=== PATIENT | male | born 1965 | race Caucasian/White ===

== ENCOUNTER → 2017-10-23 09:18 | Outpatient (CLI) | payer OTHER, SELFPAY ==
[2017-10-23 11:43] LABS: Amphetamine/Metha Screen,Urine Negative ng/mL (<1000); Barbiturates Screen,Urine Negative ng/mL (<200); Benzodiazepines Screen,Urine Negative ng/mL (200); Cannabinoid Screen,Urine Negative ng/mL (<50); Cocaine Screen,Urine Negative ng/g (<300); Methadone Screen,Urine Negative ng/mL (<300); Opiate Screen,Urine Positive ng/mL (<300); Phencyclidine Screen,Urine Negative ng/mL (<25)
[2017-11-05 08:23] LABS: Codeine Negative (Cutoff=100); Hydrocodone Positive (.); Hydromorphone Negative (Cutoff=100); Morphine Negative (Cutoff=100)
[2017-11-07 10:34] LABS: Opiates Positive (.)
== END ==
PROVIDERS: PCP Family Medicine; Visit Provider Anesthesiology
DX: Z79.899 Other long term (current) drug therapy (principal)
CPT/HCPCS: 80305; 80361; G0480

== ENCOUNTER → 2017-11-13 11:58 | Outpatient (CLI) | payer OTHER, SELFPAY ==
[2017-11-13 14:22] LABS: Amphetamine/Metha Screen,Urine Negative ng/mL (<1000); Barbiturates Screen,Urine Negative ng/mL (<200); Benzodiazepines Screen,Urine Negative ng/mL (200); Cannabinoid Screen,Urine Negative ng/mL (<50); Cocaine Screen,Urine Negative ng/g (<300); Methadone Screen,Urine Negative ng/mL (<300); Opiate Screen,Urine Positive ng/mL (<300); Phencyclidine Screen,Urine Negative ng/mL (<25)
[2017-11-17 12:13] LABS: Codeine Negative (Cutoff=100); Hydrocodone Positive (.); Hydromorphone Negative (Cutoff=100); Morphine Negative (Cutoff=100)
[2017-11-18 06:27] LABS: Opiates Positive (.)
--- NOTE | 2017-11-18 09:57 | PC.PHONENOTE ---
called in Rx for Gabapentin 600mg TID with 2 refills to [facility] in [place] [phone]
== END ==
PROVIDERS: PCP Family Medicine; Visit Provider Anesthesiology
DX: Z79.899 Other long term (current) drug therapy (principal)
CPT/HCPCS: 80305; 80361; 80365; G0480

== ENCOUNTER → 2017-12-02 10:36 | Outpatient (POV) | payer OTHER, SELFPAY ==
[2017-12-02 10:45] VITALS: BP 137/93; PULSE 83; RESP 18; TEMP 36.4; O2SAT 96; BMI 31.8
--- NOTE | 2017-12-02 11:36 | HMH.PAINSOAP ---
[facility] Pain Management SOAP Note Subjective:: This patient is a pleasant 52-year-old white male who we have been treating in our clinic for quite some time for chronic pain secondary to degenerative disc disease of the cervical spine, multi-level disc bulge cervical spine, cervical radiculopathy symptoms, lumbar back pain, lumbar disc bulge. Patient has tried injective therapy in the past with no long-term relief from it. Patient is also being medically managed at this time with [place] 5 mg 1 p.o. 3 times daily patient states the medication does decrease his pain however it is not as effective as it used to be. She denies any side effects the medication patient has been seen by surgeons in the past but there is been no recommended surgery. Patient has also tried anti-inflammatory therapy, physical therapy, bracing therapy, TENS unit. Patient would like to discuss more long-term options for pain control. Patient rates his pain a 7 out of 10 today. He states that most of his pain is in his neck and radiates down his right arm. He has numbness and tingling in that right arm all the way to his fingers. Patient states he had a dislocated rib 7-8 years ago and this is caused thoracic back pain at times. ROS General: no recent weight change, no fever, no sleep disturbances Respiratory: no cough, no shortness of air, no recurring pulmonary infections Cardiovascular/Peripheral Vascular: No chest pain, No palpitations, no edema, no shortness of breath. Gastrointestinal: no incontinence, normal bowel movements reported Genitourinary: no incontinence Musculoskeletal: Back pain, neck pain Psychiatric: normal mood/ affect, Neurological: [denies weakness in extremities], [denies balance issues] Objective:: Physical Exam General: Alert and oriented x3, no acute distress, pleasant and cooperative, [on room air] Lungs: Resps E/U, Symmetrical chest expansion, Eyes: PERRL Musculoskeletal: Flexion and extension of lumbar and cervical spine somewhat guarded secondary to pain, deep tendon reflexes normal, strength in upper and lower extremities [5/5], no gait noted Neurological: speech clear, 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 Patient is both interested in intrathecal pain pump or a neurostimulator. I will do even may be effective for his pain control. Patient is young and had increase of potential systemic side effects if we continually increase his opioids. Patient understands this and does not want to continually increase medications. Patient would like to be off all narcotic pain medication. Patient would like to become more functional and return to work potentially. We will refill the patient's pain medication [place] 5 mg 1 p.o. 3 times daily and also: Meloxicam 7.5 mg 1 p.o. daily. patient's Sierra #[id number] reviewed and appropriate patient's UDS has been appropriate in the past. We will give this patient 1 month prescriptions and we will follow-up in 1 month to discuss moving forward with a neuromodulation therapy. Dr. Glover has reviewed his chart and agrees with this plan. I encouraged the patient to write down all of his thoughts and questions and bring them to this appointment. Patient has been prescribed a controlled substance after being counseled on the medication, medication safety, and possible side effects. SIERRA report has been obtained and reviewed prior to prescription and found to be appropriate. Opioid contract was reviewed and signed by the patient, and that they have agreed to all of the terms set forth by our compliance program. This note was dictated using voice-recognition software and may contain errors or omissions
--- NOTE | 2017-12-02 11:46 | P.CONS_ITS ---
[facility] Pain Management SOAP Note Subjective:: This patient is a pleasant 52-year-old white male who we have been treating in our clinic for quite some time for chronic pain secondary to degenerative disc disease of the cervical spine, multi-level disc bulge cervical spine, cervical radiculopathy symptoms, lumbar back pain, lumbar disc bulge. Patient has tried injective therapy in the past with no long-term relief from it. Patient is also being medically managed at this time with [place] 5 mg 1 p.o. 3 times daily patient states the medication does decrease his pain however it is not as effective as it used to be. She denies any side effects the medication patient has been seen by surgeons in the past but there is been no recommended surgery. Patient has also tried anti-inflammatory therapy, physical therapy, bracing therapy, TENS unit. Patient would like to discuss more long-term options for pain control. Patient rates his pain a 7 out of 10 today. He states that most of his pain is in his neck and radiates down his right arm. He has numbness and tingling in that right arm all the way to his fingers. Patient states he had a dislocated rib 7-8 years ago and this is caused thoracic back pain at times. ROS General: no recent weight change, no fever, no sleep disturbances Respiratory: no cough, no shortness of air, no recurring pulmonary infections Cardiovascular/Peripheral Vascular: No chest pain, No palpitations, no edema, no shortness of breath. Gastrointestinal: no incontinence, normal bowel movements reported Genitourinary: no incontinence Musculoskeletal: Back pain, neck pain Psychiatric: normal mood/ affect, Neurological: [denies weakness in extremities], [denies balance issues] Objective:: Physical Exam General: Alert and oriented x3, no acute distress, pleasant and cooperative, [ on room air] Lungs: Resps E/U, Symmetrical chest expansion, Eyes: PERRL Musculoskeletal: Flexion and extension of lumbar and cervical spine somewhat guarded secondary to pain, deep tendon reflexes normal, strength in upper and lower extremities [5/5], no gait noted Neurological: speech clear, 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 Patient is both interested in intrathecal pain pump or a neurostimulator. I will do even may be effective for his pain control. Patient is young and had increase of potential systemic side effects if we continually increase his opioids. Patient understands this and does not want to continually increase medications. Patient would like to be off all narcotic pain medication. Patient would like to become more functional and return to work potentially. We will refill the patient's pain medication [place] 5 mg 1 p.o. 3 times daily and also: Meloxicam 7.5 mg 1 p.o. daily. patient's Sierra # [id number] reviewed and appropriate patient's UDS has been appropriate in the past. We will give this patient 1 month prescriptions and we will follow-up in 1 month to discuss moving forward with a neuromodulation therapy. Dr. Glover has reviewed his chart and agrees with this plan. I encouraged the patient to write down all of his thoughts and questions and bring them to this appointment. Patient has been prescribed a controlled substance after being counseled on the medication, medication safety, and possible side effects. [facility]ERRA report has been obtained and reviewed prior to prescription and found to be appropriate.
--- NOTE | 2017-12-03 08:37 | PC.PHONENOTE ---
12/02/17-called in Rx for Meloxicam 7.5mg Daily with 2 refills to pt pharmacy
--- NOTE | 2017-12-10 13:53 | PC.PHONENOTE ---
authorized refill on Gabapentin with 2 additional refills to [facility] pharmacy in [place]
== END ==
PROVIDERS: Family Provider Family Medicine; PCP Family Medicine; Visit Provider Clinical Nurse Specialist Family Health
DX: M54.12 Radiculopathy, cervical region (principal)
CPT/HCPCS: 99212

== ENCOUNTER → 2017-12-22 10:26 | Outpatient (POV) | payer OTHER, SELFPAY ==
[2017-12-22 10:37] VITALS: BP 142/102; PULSE 52; RESP 20; O2SAT 97; BMI 31.8
--- NOTE | 2017-12-22 16:37 | HMH.PAINSOAP ---
[facility] Pain Management SOAP Note Subjective:: This patient is a pleasant 52-year-old white male who we have been treating for neck pain, low back pain and cervical lumbar radicular symptoms. He is currently on [place] 5 mg 3 times a day. He is not a candidate for any further surgery. He is failed all previous conservative therapy including physical therapy, chiropractic therapy, injections and oral medications. His pain varies from neck to low back depending on activity and time a day. Patient was given information on intrathecal therapy and spinal cord stimulation. Given that he has neck pain and low back pain I believe he would be a good candidate for intrathecal therapy. He is also on very low-dose narcotics. I have talked to him about the risk and benefits of intrathecal therapy. I have answered all questions. We will schedule for neuropsychological evaluation. I believe he would be a good candidate for intrathecal pump trial. Objective:: Alert and oriented ?3 in no acute distress. Patient has a antalgic gait. Motor strength of the upper and lower extremities is 5/5. There is no gross sensory deficit. Assessment:: Degenerative disc disease of the cervical spine with cervical radiculopathy symptoms. Degenerative disc disease of lumbar spine with lumbar radiculopathy symptoms. Plan:: We will seek approval and plan on intrathecal pump trial. We will plan on neuropsychological evaluation. I have talked to the patient about weaning off of his Str[place] and being completely off 48 hours prior to trial. He is not on any blood thinners. We will plan on intrathecal pump trial with catheter placement at the T4-T5 level to cover neck pain and low back pain.
== END ==
PROVIDERS: Family Provider Family Medicine; PCP Family Medicine; Visit Provider Anesthesiology
DX: M54.12 Radiculopathy, cervical region (principal); M54.16 Radiculopathy, lumbar region
CPT/HCPCS: 99212

== ENCOUNTER → 2018-02-09 09:28 | Outpatient (POV) | payer OTHER, SELFPAY ==
[2018-02-09 09:39] VITALS: BP 126/87; PULSE 71; RESP 18; TEMP 36.7; O2SAT 99; BMI 32.5
--- NOTE | 2018-02-09 10:09 | HMH.PAINSOAP ---
[facility] Pain Management SOAP Note Subjective:: This patient is a pleasant 52-year-old white male who presents today for follow-up after insurance denial intrathecal pain pump trial. Patient is currently on [place] 5 mg 1 p.o. 3 times daily. Patient is not a candidate for any further surgery. Patient's tried and failed previous conservative therapies including physical therapy, chiropractic therapy, injections and oral medications. Patient has low back pain along with neck pain at times. Patient is a lot less functional due to his pain. Patient has been educated on the risk and benefits of intrathecal therapy. Patient would like to proceed forward with intrathecal pain pump trial. ROS General: no recent weight change, no fever, no sleep disturbances Respiratory: no cough, no shortness of air, no recurring pulmonary infections Cardiovascular/Peripheral Vascular: No chest pain, No palpitations, no edema, no shortness of breath. Gastrointestinal: no incontinence, normal bowel movements reported Genitourinary: no incontinence Musculoskeletal: Pain, neck pain, bilateral leg pain Psychiatric: normal mood/ affect, [denies depression], [denies anxiety] Neurological: [denies weakness in extremities], [denies balance issues] Objective:: Physical Exam General: Alert and oriented x3, no acute distress, pleasant and cooperative, [on room air] Lungs: Resps E/U, Symmetrical chest expansion, Eyes: PERRL Musculoskeletal: Flexion and extension of lumbar spine somewhat guarded secondary to pain, deep tendon reflexes normal, strength in upper and lower extremities [5/5], slightly antalgic gait noted, positive straight leg test bilaterally at 30? Neurological: speech clear, spanish interpreter equal, no gross sensory deficits Assessment:: Degenerative disc disease of the cervical spine with cervical radiculopathy symptoms, degenerative disc disease of the lumbar spine with lumbar radiculopathy symptoms Plan:: We will plan a intrathecal pain pump trial and eventually and implantation of an intrathecal morphine pump. Patient is a good candidate for this. We will send him for for a psychological evaluation. Patient will have to wean off his narcotics completely prior to his trial. Patient is not on any blood thinners. Intrathecal pain pump trial will include placement of the catheter at the T4-T5 level for his neck pain and low back pain. Our goal will be to have him off oral narcotics permanently after placement of pump. We will refill the patient's [place] 5 mg 1 p.o. 3 times daily and gabapentin 600 mg 1 p.o. 3 times daily. We will give him 2 months worth of prescriptions today. Patient's SIERRA #[id number] reviewed and appropriate. Dr. Glover has reviewed this chart and agrees with this plan of care. Patient has been prescribed a controlled substance after being counseled on the medication, medication safety, and possible side effects. SIERRA report has been obtained and reviewed prior to prescription and found to be appropriate. Opioid contract was reviewed and signed by the patient, and that they have agreed to all of the terms set forth by our compliance program. This note was dictated using voice recognition software and may contain errors or omissions
--- NOTE | 2018-02-09 10:13 | P.CONS_ITS ---
[facility] Pain Management SOAP Note Subjective:: This patient is a pleasant 52-year-old white male who presents today for follow- up after insurance denial intrathecal pain pump trial. Patient is currently on [place] 5 mg 1 p.o. 3 times daily. Patient is not a candidate for any further surgery. Patient's tried and failed previous conservative therapies including physical therapy, chiropractic therapy, injections and oral medications. Patient has low back pain along with neck pain at times. Patient is a lot less functional due to his pain. Patient has been educated on the risk and benefits of intrathecal therapy. Patient would like to proceed forward with intrathecal pain pump trial. ROS General: no recent weight change, no fever, no sleep disturbances Respiratory: no cough, no shortness of air, no recurring pulmonary infections Cardiovascular/Peripheral Vascular: No chest pain, No palpitations, no edema, no shortness of breath. Gastrointestinal: no incontinence, normal bowel movements reported Genitourinary: no incontinence Musculoskeletal: Pain, neck pain, bilateral leg pain Psychiatric: normal mood/ affect, [denies depression], [denies anxiety] Neurological: [denies weakness in extremities], [denies balance issues] Objective:: Physical Exam General: Alert and oriented x3, no acute distress, pleasant and cooperative, [ on room air] Lungs: Resps E/U, Symmetrical chest expansion, Eyes: PERRL Musculoskeletal: Flexion and extension of lumbar spine somewhat guarded secondary to pain, deep tendon reflexes normal, strength in upper and lower extremities [5/5], slightly antalgic gait noted, positive straight leg test bilaterally at 30? 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 Patient is a good candidate for this. We will send him for for a psychological evaluation. Patient will have to wean off his narcotics completely prior to his trial. Patient is not on any blood thinners. Intrathecal pain pump trial will include placement of the catheter at the T4- T5 level for his neck pain and low back pain. Our goal will be to have him off oral narcotics permanently after placement of pump. We will refill the patient' s [place] 5 mg 1 p.o. 3 times daily and gabapentin 600 mg 1 p.o. 3 times daily. We will give him 2 months worth of prescriptions today. Patient's SIERRA # [id number] reviewed and appropriate. Dr. Glover has reviewed this chart and agrees with this plan of care. Patient has been prescribed a controlled substance after being counseled on the medication, medication safety, and possible side effects. SIERRA report has been obtained and reviewed prior to prescription and found to be appropriate. Opioid contract was reviewed and signed by the patient, and that they have agreed to all of the terms set forth by our compliance program. This note was dictated using voice recognition software and may contain errors or omissions
== END ==
PROVIDERS: Family Provider Family Medicine; PCP Family Medicine; Visit Provider Clinical Nurse Specialist Family Health
DX: M54.12 Radiculopathy, cervical region (principal); M54.16 Radiculopathy, lumbar region
CPT/HCPCS: 99212

== ENCOUNTER → 2018-02-25 09:39 | Outpatient (POV) | payer OTHER, SELFPAY ==
[2018-02-25 13:22] VITALS: BP 123/85; PULSE 73; RESP 18; TEMP 36.7; O2SAT 97; BMI 31.6
--- NOTE | 2018-02-25 15:03 | P.CONS_ITS ---
Assessment and Plan - Assessment and plan all Dx Assessment and Plan for all problems:: Impression-degenerative disc disease of the cervical and lumbar spine with radiculopathy Plan -intrathecal pain pump trial on 03/13/2018. Placement of a permanent system should this be successful HPI - Data of Consult Patient: new to practice Consult date: 02/25/18 Requesting Physician: Giovany Garcia MD Primary Care Provider: Adelia Guaman [facility] Provider: Adelia Guaman - Consult Narrative Reason for consult: Degenerative disc disease of the cervical and lumbar spine with radiculopat History of present illness: Mr. Carter is a 52 year old male with chronic back pain. Patient is not a candidate for surgical intervention. He has tried multiple conservative measures without significant success. Now presents for consideration of an intrathecal pain pump system for help in management of his cervical lumbar disc disease. CC: Giovany Garcia MD [facility] History Medical History: Denies:: Diabetes Mellitus Type 1, Diabetes Mellitus Type 2 Comment: History of kidney stones, cervical and lumbar disc days Other Surgeries: Yes: Other (knee surgery, unknown type) Amputation: No Fractures: No Comment: Knee surgery 1994 - *Social History Alcohol Intake: never Occupational Status: disabled - Psychiatric History Expresses thoughts of harming self/others: None Suicide Plan Description: No Plan Meds Allergies Allergy/AdvReac Type Severity Reaction Status Date / Time No Known Allergies Allergy Unverified 09/23/17 14:07 Objective Vital signs: Temp Pulse Resp BP Pulse Ox 98.0 F 73 18 123/85 97 02/25/18 13:22 02/25/18 13:22 02/25/18 13:22 02/25/18 13:22 02/25/18 13:22 Comments: L healthy appearing white male in no distress - Routine Chest/Breast/Axilla Exam Comments: Clear breath sounds - *Routine Cardiovascular Exam Present: RRR - *Routine Abdominal Exam Comments: Soft and nontender
== END ==
PROVIDERS: Family Provider Family Medicine; PCP Family Medicine; Visit Provider Surgery
DX: M54.12 Radiculopathy, cervical region (principal); M54.16 Radiculopathy, lumbar region
CPT/HCPCS: 99212

== ENCOUNTER → 2018-03-03 11:10 | Outpatient (CLI) | payer OTHER, SELFPAY ==
[2018-03-03 11:34] LABS: Basophils % 0.7 % (0.1-2.0); Eosinophils # 0.1 K/mm3 (0.0-0.4); Eosinophils % 1.4 % (0.1-12.0); Hematocrit 41.6 % (42.0-52.0); Hemoglobin 12.6 g/dL (14.1-18.0); Lymphocytes # 1.8 K/mm3 (0.7-4.5); Lymphocytes % 38.3 K/mm3 (10-50); Mean Corpuscular HGB Conc 30.3 g/dL (31.8-35.4); Mean Corpuscular Hemoglobin 25.2 pg (27.0-31.2); Mean Corpuscular Volume 83.2 fl (80-94); Mean Platelet Volume 6.9 fl (7.4-10.4); Monocytes # 0.4 K/mm3 (0.1-1.0); Monocytes % 8.6 % (1.7-9.3); Neutrophils # 2.4 K/mm3 (1.8-7.8); Platelet Count 283 K/mm3 (142-424); Red Cell Distribution Width 15.7 % (11.5-17.5); White Blood Count 4.7 K/mm3 (4.8-10.8)
[2018-03-03 12:36] LABS: Anion Gap 10.7 mEq/L (5-15); Blood Urea Nitrogen 15 mg/dL (7-18); Carbon Dioxide 30 mmol/L (21.0-32.0); Chloride 106 mmol/L (98-107); Creatinine,Serum 1.08 mg/dL (0.70-1.30); Estimated Glomerular Filt Rate 71 ml/min (>60); GFR (African American) 86 ML/MIN (>60); Glucose 105 mg/dL (74-106); Potassium 4.7 mmoL/L (3.5-5.1); Sodium 142 mmol/L (136-145)
== END ==
PROVIDERS: Visit Provider Anesthesiology
DX: Z01.818 Encounter for other preprocedural examination (principal)
CPT/HCPCS: 36415; 80048; 85025

== ENCOUNTER → 2018-03-16 10:27 | Outpatient (POV) | payer OTHER, SELFPAY ==
[2018-03-16 10:58] VITALS: BP 140/87; PULSE 73; RESP 18; O2SAT 98; BMI 32.5
--- NOTE | 2018-03-16 11:12 | HMH.PAINSOAP ---
[facility] Pain Management SOAP Note Subjective:: Patient is a pleasant 52-year-old white male who presents today after intrathecal pain pump trial. Patient received 90% relief of his pain symptoms during the trial. Patient did have some urinary retention however he also had kidney stones prior to the trial. This is all resolved. Patient states he had pain relief for 2 days after the trial and did not need to take any pain medication. Patient is currently on [place] 5 mg 1 p.o. 3 times daily. Patient is due gabapentin and meloxicam refills. We will call this in for him. We will schedule him for his intrathecal pain pump implantation given the efficacy and increase functionality range of motion during the trial. ROS General: no recent weight change, no fever, no sleep disturbances Respiratory: no cough, no shortness of air, no recurring pulmonary infections Cardiovascular/Peripheral Vascular: No chest pain, No palpitations, no edema, no shortness of breath. Gastrointestinal: no incontinence, normal bowel movements reported Genitourinary: no incontinence Musculoskeletal: Back pain, leg pain Psychiatric: normal mood/ affect Neurological: [denies weakness in extremities], [denies balance issues] Objective:: Physical Exam General: Alert and oriented x3, no acute distress, pleasant and cooperative, [on room air] Lungs: Resps E/U, Symmetrical chest expansion, Eyes: PERRL Musculoskeletal: Flexion and extension of lumbar spine somewhat guarded secondary to pain, deep tendon reflexes normal, strength in upper and lower extremities [5/5], normal gait noted Neurological: speech clear, small order cutter equal, no gross sensory deficits Assessment:: Degenerative disc disease of the cervical spine and lumbar spine with radiculopathy symptoms Plan:: patient has been seen by we will plan on permanent placement of intrathecal pain pump with intrathecal morphine 1 mg/mL and we will start him at a lower dose of 0.5 mg due to urinary retention. We will start him at 0.25 mg per day, he may potentially benefit from periodic flow. This note was dictated using voice recognition software and may contain errors or omissions
--- NOTE | 2018-03-16 11:17 | P.CONS_ITS ---
[facility] Pain Management SOAP Note Subjective:: Patient is a pleasant 52-year-old white male who presents today after intrathecal pain pump trial. Patient received 90% relief of his pain symptoms during the trial. Patient did have some urinary retention however he also had kidney stones prior to the trial. This is all resolved. Patient states he had pain relief for 2 days after the trial and did not need to take any pain medication. Patient is currently on [place] 5 mg 1 p.o. 3 times daily. Patient is due gabapentin and meloxicam refills. We will call this in for him. We will schedule him for his intrathecal pain pump implantation given the efficacy and increase functionality range of motion during the trial. ROS General: no recent weight change, no fever, no sleep disturbances Respiratory: no cough, no shortness of air, no recurring pulmonary infections Cardiovascular/Peripheral Vascular: No chest pain, No palpitations, no edema, no shortness of breath. Gastrointestinal: no incontinence, normal bowel movements reported Genitourinary: no incontinence Musculoskeletal: Back pain, leg pain Psychiatric: normal mood/ affect Neurological: [denies weakness in extremities], [denies balance issues] Objective:: Physical Exam General: Alert and oriented x3, no acute distress, pleasant and cooperative, [ on room air] Lungs: Resps E/U, Symmetrical chest expansion, Eyes: PERRL Musculoskeletal: Flexion and extension of lumbar spine somewhat guarded secondary to pain, deep tendon reflexes normal, strength in upper and lower extremities [5/5], normal gait noted Neurological: speech clear, contracting support specialist equal, no gross sensory deficits Assessment:: Degenerative disc disease of the cervical spine and lumbar spine with radiculopathy symptoms Plan:: patient has been seen by we will plan on permanent placement of intrathecal pain pump with intrathecal morphine 1 mg/mL and we will start him at a lower dose of 0.5 mg due to urinary retention. We will start him at 0.25 mg per day, he may potentially benefit from periodic flow. This note was dictated using voice recognition software and may contain errors or omissions
== END ==
PROVIDERS: Family Provider Family Medicine; PCP Family Medicine; Visit Provider Clinical Nurse Specialist Family Health
DX: M54.16 Radiculopathy, lumbar region (principal)
CPT/HCPCS: 99212

== ENCOUNTER → 2018-03-30 10:03 | Outpatient (POV) | payer OTHER, SELFPAY ==
[2018-03-30 10:41] VITALS: BP 126/82; PULSE 75; RESP 18; TEMP 36.4; O2SAT 96; BMI 32.5
--- NOTE | 2018-03-30 12:24 | PC.NURSE ---
PT'S CATHETER WAS REMOVED IN THE OFFICE AND HE WAS TOLD IF HE HAD ANY ISSUES WITH URINATING TO CALL OR COME BACK TO THE OFFICE
--- NOTE | 2018-03-30 13:04 | HMH.PAINSOAP ---
[facility] Pain Management SOAP Note Subjective:: Patient is a pleasant 52-year-old white male who presents today for follow-up. Patient had an intrathecal pain pump implanted with morphine going at 0.25 mg per day. Patient states all of his typical pain is gone rating his pain a 0 out of 10. Patient does have some tenderness around the incision site. Patient's incision site looks good with no sign symptoms of infection. Patient presents today due to urinary retention. Patient went to the ER and had a catheter placed and was put on Flomax 0.4 mg daily on Friday. We will remove the catheter today and continue the patient on Flomax. ROS General: no recent weight change, no fever, no sleep disturbances Respiratory: no cough, no shortness of air, no recurring pulmonary infections Cardiovascular/Peripheral Vascular: No chest pain, No palpitations, no edema, no shortness of breath. Gastrointestinal: no incontinence, normal bowel movements reported Genitourinary: Urinary retention Musculoskeletal: Back pain Psychiatric: normal mood/ affect Neurological: [denies weakness in extremities], [denies balance issues] Objective:: Physical Exam General: Alert and oriented x3, no acute distress, pleasant and cooperative, [on room air] Lungs: Resps E/U, Symmetrical chest expansion, Eyes: PERRL Musculoskeletal: Flexion and extension of lumbar spine somewhat guarded secondary to pain, deep tendon reflexes normal, strength in upper and lower extremities [5/5], normal gait noted Skin: Incision site over pump clean dry intact, stitches in place, no sign symptoms of infection. No drainage noted. 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 Patient will continue on Flomax 0.4 mg up to twice a day. I will see this patient back when it is time to have his stitches out patient has been instructed to call the office if he has any more issues. This note was dictated using voice recognition software and may contain errors or omissions
--- NOTE | 2018-03-30 13:15 | P.CONS_ITS ---
[facility] Pain Management SOAP Note Subjective:: Patient is a pleasant 52-year-old white male who presents today for follow-up. Patient had an intrathecal pain pump implanted with morphine going at 0.25 mg per day. Patient states all of his typical pain is gone rating his pain a 0 out of 10. Patient does have some tenderness around the incision site. Patient 's incision site looks good with no sign symptoms of infection. Patient presents today due to urinary retention. Patient went to the ER and had a catheter placed and was put on Flomax 0.4 mg daily on Friday. We will remove the catheter today and continue the patient on Flomax. ROS General: no recent weight change, no fever, no sleep disturbances Respiratory: no cough, no shortness of air, no recurring pulmonary infections Cardiovascular/Peripheral Vascular: No chest pain, No palpitations, no edema, no shortness of breath. Gastrointestinal: no incontinence, normal bowel movements reported Genitourinary: Urinary retention Musculoskeletal: Back pain Psychiatric: normal mood/ affect Neurological: [denies weakness in extremities], [denies balance issues] Objective:: Physical Exam General: Alert and oriented x3, no acute distress, pleasant and cooperative, [ on room air] Lungs: Resps E/U, Symmetrical chest expansion, Eyes: PERRL Musculoskeletal: Flexion and extension of lumbar spine somewhat guarded secondary to pain, deep tendon reflexes normal, strength in upper and lower extremities [5/5], normal gait noted Skin: Incision site over pump clean dry intact, stitches in place, no sign symptoms of infection. No drainage noted. 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 Patient will continue on Flomax 0.4 mg up to twice a day. I will see this patient back when it is time to have his stitches out patient has been instructed to call the office if he has any more issues. This note was dictated using voice recognition software and may contain errors or omissions
== END ==
PROVIDERS: Family Provider Family Medicine; PCP Family Medicine; Visit Provider Clinical Nurse Specialist Family Health
DX: M50.10 Cervical disc disorder with radiculopathy, unspecified cervical region (principal); M51.16 Intervertebral disc disorders with radiculopathy, lumbar region
CPT/HCPCS: 99212

== ENCOUNTER → 2018-04-07 08:46 | Outpatient (POV) | payer OTHER, SELFPAY ==
[2018-04-07 08:58] VITALS: BP 134/87; PULSE 65; RESP 18; O2SAT 98; BMI 32.5
--- NOTE | 2018-04-07 13:52 | HMH.PAINSOAP ---
[facility] Pain Management SOAP Note Subjective:: Patient is a pleasant 52-year-old white male who presents today for follow-up after intrathecal pain pump placement. Patient had a morphine infusion of 0.25 mg per day however he was having urinary retention. Patient was decreased to 0.18 mg a day on a periodic flow. Patient states he is peeing much better and is continuing his Flomax 0.8 mg a day. Patient does have a home catheter kit if needed. Patient would like to increase his pain pump infusion slightly. Patient's pain was 0 out of 10 at 0.25 mg a day. Patient states his pain today as a 5 out of 10. We will give him a slight increase today. Patient's temperatures have been removed his site looks clean dry and intact there are no sign symptoms of infection. It looks like it is healing well. ROS General: no recent weight change, no fever, no sleep disturbances Respiratory: no cough, no shortness of air, no recurring pulmonary infections Cardiovascular/Peripheral Vascular: No chest pain, No palpitations, no edema, no shortness of breath. Gastrointestinal: no incontinence, normal bowel movements reported Genitourinary: no incontinence Musculoskeletal: Back pain, leg pain Psychiatric: normal mood/ affect Neurological: [denies weakness in extremities], [denies balance issues] Objective:: Physical Exam General: Alert and oriented x3, no acute distress, pleasant and cooperative, [on room air] Lungs: Resps E/U, Symmetrical chest expansion, Eyes: PERRL Musculoskeletal: Flexion and extension of lumbar spine somewhat guarded secondary to pain, deep tendon reflexes normal, strength in upper and lower extremities [5/5], normal gait noted Neurological: speech clear, facility manager equal, no gross sensory deficits Assessment:: Degenerative disc disease of the lumbar spine with lumbar radiculopathy Plan:: We will follow-up with this patient in 2 weeks his intrathecal pain pump infusion was increased to 0.2 mg continuous. Patient is to continue his Flomax. Patient's been instructed to call the office if he has any issues prior to his next appointment. This note was dictated using voice recognition software and may contain errors or omissions
--- NOTE | 2018-04-07 13:55 | P.CONS_ITS ---
[facility] Pain Management SOAP Note Subjective:: Patient is a pleasant 52-year-old white male who presents today for follow-up after intrathecal pain pump placement. Patient had a morphine infusion of 0.25 mg per day however he was having urinary retention. Patient was decreased to 0.18 mg a day on a periodic flow. Patient states he is peeing much better and is continuing his Flomax 0.8 mg a day. Patient does have a home catheter kit if needed. Patient would like to increase his pain pump infusion slightly. Patient's pain was 0 out of 10 at 0.25 mg a day. Patient states his pain today as a 5 out of 10. We will give him a slight increase today. Patient's temperatures have been removed his site looks clean dry and intact there are no sign symptoms of infection. It looks like it is healing well. ROS General: no recent weight change, no fever, no sleep disturbances Respiratory: no cough, no shortness of air, no recurring pulmonary infections Cardiovascular/Peripheral Vascular: No chest pain, No palpitations, no edema, no shortness of breath. Gastrointestinal: no incontinence, normal bowel movements reported Genitourinary: no incontinence Musculoskeletal: Back pain, leg pain Psychiatric: normal mood/ affect Neurological: [denies weakness in extremities], [denies balance issues] Objective:: Physical Exam General: Alert and oriented x3, no acute distress, pleasant and cooperative, [ on room air] Lungs: Resps E/U, Symmetrical chest expansion, Eyes: PERRL Musculoskeletal: Flexion and extension of lumbar spine somewhat guarded secondary to pain, deep tendon reflexes normal, strength in upper and lower extremities [5/5], normal gait noted Neurological: speech clear, metal grinder equal, no gross sensory deficits Assessment:: Degenerative disc disease of the lumbar spine with lumbar radiculopathy Plan:: We will follow-up with this patient in 2 weeks his intrathecal pain pump infusion was increased to 0.2 mg continuous. Patient is to continue his Flomax. Patient's been instructed to call the office if he has any issues prior to his next appointment. This note was dictated using voice recognition software and may contain errors or omissions
== END ==
PROVIDERS: Family Provider Family Medicine; PCP Family Medicine; Visit Provider Clinical Nurse Specialist Family Health
DX: M54.16 Radiculopathy, lumbar region (principal)
CPT/HCPCS: 99212

== ENCOUNTER → 2018-04-13 09:38 | Outpatient (POV) | payer OTHER, SELFPAY ==
[2018-04-13 09:49] VITALS: BP 135/88; PULSE 63; RESP 18; O2SAT 98; BMI 32.5
--- NOTE | 2018-04-13 09:52 | HMH.PAINSOAP ---
[facility] Pain Management SOAP Note Subjective:: Patient is a pleasant 52-year-old white male who presents today for follow-up. Patient had an intrathecal pain pump implanted and had urinary retention afterwards. Patient was changed to periodic flow and given Flomax 0.4 mg 2 tabs daily. Patient is doing well at this time he currently has a morphine infusion of 0.2 mg. Patient's PTC was set up at 0.02 up to 4 a day with acute 4 hour lockout. Patient will follow-up in a month. Patient states that he is doing quite well pain gan he rates his pain a 4 out of 10 today. Patient and I had a discussion in regards to adjusting the pump while he still having some urinary retention. Incision is healing well patient states he has some tenderness over it however there is no sign symptoms of infection. ROS General: no recent weight change, no fever, no sleep disturbances Respiratory: no cough, no shortness of air, no recurring pulmonary infections Cardiovascular/Peripheral Vascular: No chest pain, No palpitations, no edema, no shortness of breath. Gastrointestinal: no incontinence, normal bowel movements reported Genitourinary: no incontinence Musculoskeletal: Back pain Psychiatric: normal mood/ affect Neurological: [denies weakness in extremities], [denies balance issues] Objective:: Physical Exam General: Alert and oriented x3, no acute distress, pleasant and cooperative, [on room air] Lungs: Resps E/U, Symmetrical chest expansion, Eyes: PERRL Musculoskeletal: Flexion and extension of lumbar spine somewhat guarded secondary to pain, deep tendon reflexes normal, strength in upper and lower extremities [5/5], normal gait noted Neurological: speech clear, manager multicultural equal, no gross sensory deficits Assessment:: Degenerative disc disease of lumbar spine with lumbar radiculopathy Plan:: Follow-up with this patient in 1 month and reassess his symptoms at that time. Patient has been instructed to call the office if he has any issues prior to his next appointment. This note was dictated using voice recognition software and may contain errors or omissions
== END ==
PROVIDERS: Family Provider Family Medicine; PCP Family Medicine; Visit Provider Clinical Nurse Specialist Family Health
DX: M54.16 Radiculopathy, lumbar region (principal)
CPT/HCPCS: 99212

== ENCOUNTER → 2018-05-11 10:59 | Outpatient (POV) | payer OTHER, SELFPAY ==
[2018-05-11 11:23] VITALS: BP 126/87; PULSE 68; RESP 18; O2SAT 98; BMI 31.6
--- NOTE | 2018-05-11 12:16 | HMH.PMPROC ---
- Procedure Date: 05/11/18 Time: 11:40 Anesthesiologist:: Rolanda Martinez APRN Complications:: None Pre-procedure Diagnosis:: degenerative disc disease lumbar spine with lumbar radiculopathy Post-procedure Diagnosis:: Same Indications for Procedure:: Patient is a pleasant 52-year-old white male who presents today for intrathecal pain pump reprogram. Patient has an intrathecal pain pump going at 0.2 mg of morphine per day. Patient rates his pain a 5 out of 10. Patient had a urinary hesitancy however this is subsided. Patient would like a small increase today. At this time he denies side effects. Physical Exam General: Alert and oriented x3, no acute distress, pleasant and cooperative, [on room air] Lungs: Resps E/U, Symmetrical chest expansion, Eyes: PERRL Musculoskeletal: Flexion and extension of lumbar spine somewhat guarded secondary to pain, deep tendon reflexes normal, strength in upper and lower extremities [5/5], normal gait noted Neurological: speech clear, bonding machine tender equal, no gross sensory deficits Procedure Details:: Informed consent was obtained and the risk and benefits of the procedure were explained to the patient. The patient was taken to the procedure room where noninvasive monitoring was placed including noninvasive blood pressure cuff and pulse oximeter. Patient's pump was interrogated. The infusion rate was increased to 0.25 mg per day. The patient tolerated the procedure well. Plan and Disposition:: We will follow-up with the patient and his next intrathecal pain pump refill. Patient's been instructed to call the office if he has any issues prior to his next appointment. This note was dictated using voice recognition software and may contain errors or omissions
--- NOTE | 2018-05-11 12:21 | P.PCN_ITS ---
- Procedure Date: 05/11/18 Time: 11:40 Anesthesiologist:: Rolanda Martinez APRN Complications:: None Pre-procedure Diagnosis:: degenerative disc disease lumbar spine with lumbar radiculopathy Post-procedure Diagnosis:: Same Indications for Procedure:: Patient is a pleasant 52-year-old white male who presents today for intrathecal pain pump reprogram. Patient has an intrathecal pain pump going at 0.2 mg of morphine per day. Patient rates his pain a 5 out of 10. Patient had a urinary hesitancy however this is subsided. Patient would like a small increase today. At this time he denies side effects. Physical Exam General: Alert and oriented x3, no acute distress, pleasant and cooperative, [ on room air] Lungs: Resps E/U, Symmetrical chest expansion, Eyes: PERRL Musculoskeletal: Flexion and extension of lumbar spine somewhat guarded secondary to pain, deep tendon reflexes normal, strength in upper and lower extremities [5/5], normal gait noted Neurological: speech clear, lobster man equal, no gross sensory deficits Procedure Details:: Informed consent was obtained and the risk and benefits of the procedure were explained to the patient. The patient was taken to the procedure room where noninvasive monitoring was placed including noninvasive blood pressure cuff and pulse oximeter. Patient's pump was interrogated. The infusion rate was increased to 0.25 mg per day. The patient tolerated the procedure well. Plan and Disposition:: We will follow-up with the patient and his next intrathecal pain pump refill. Patient's been instructed to call the office if he has any issues prior to his next appointment. This note was dictated using voice recognition software and may contain errors or omissions
== END ==
PROVIDERS: Family Provider Family Medicine; PCP Family Medicine; Visit Provider Clinical Nurse Specialist Family Health
DX: M54.16 Radiculopathy, lumbar region (principal)
CPT/HCPCS: 62368; 99212

== ENCOUNTER → 2019-03-02 14:38 | Outpatient (CLI) | payer MEDICARE, OTHER, SELFPAY ==
[2019-03-05 14:26] LABS: Chlordiazepoxide None Detected ug/mL (0.1-0.9)
[2019-03-05 18:43] LABS: Acetone Negative % (0.000-0.010); Butalbital None Detected ug/mL (1-10); Diazepam None Detected ug/mL (0.1-0.9); Ethanol Negative % (0.000-0.010); Isopropanol Negative % (0.000-0.010); Pentobarbital None Detected ug/mL (1-5)
== END ==
PROVIDERS: PCP Family Medicine; Visit Provider Clinical Nurse Specialist Family Health
DX: Z79.899 Other long term (current) drug therapy (principal)
CPT/HCPCS: 36415; 80306; 80356; 80361; G0480

== ENCOUNTER → 2019-03-23 08:54 | Outpatient (POV) | payer MEDICARE, OTHER, SELFPAY ==
[2019-03-23 09:11] VITALS: BP 140/92; PULSE 70; RESP 18; O2SAT 98; BMI 33.2
--- NOTE | 2019-03-23 09:38 | HMH.PMPROC ---
- Procedure Date: 03/23/19 Time: 09:38 Anesthesiologist:: Rolanda Martinez APRN Complications:: None Pre-procedure Diagnosis:: Degenerative disc disease lumbar spine with lumbar radiculopathy Post-procedure Diagnosis:: Same Indications for Procedure:: Patient is a pleasant 53-year-old male who presents today for intrathecal pain pump room. The patient says that he has been more active over the last couple of weeks, returning from vacation in [place] and helping his who had a recent fall with a fractured arm. He rates his pain a 7 out of 10 today. Denies side effects to his medications. Physical Exam General: Alert and oriented x3, no acute distress, pleasant and cooperative, [on room air] Lungs: Resps E/U, Symmetrical chest expansion, Eyes: PERRL Musculoskeletal: Flexion and extension of lumbar spine somewhat guarded secondary to pain, deep tendon reflexes normal, strength in upper and lower extremities [5/5], [abnormal gait noted] Neurological: speech clear, sound effects manager equal, no gross sensory deficits Procedure Details:: Informed consent was obtained and the risk and benefits of the procedure were explained to the patient. The patient was taken to the procedure room where noninvasive monitoring was placed including noninvasive blood pressure cuff and pulse oximeter. Patient's pump was interrogated and reprogrammed. The infusion rate was changed to periodic flow and he is now on a dose of 0.1 mg of morphine every 2 hours for total dose of 1.2 mg. The patient tolerated the procedure well. Plan and Disposition:: We will see the patient at his next appointment for refill and reprogram. He is been instructed to call the office if he has any concerns prior to his next appointment. Dr. Glover has reviewed this note and agrees with this plan of care. This note was dictated using voice recognition software and may contain errors or omissions
--- NOTE | 2019-03-23 09:42 | P.PCN_ITS ---
- Procedure Date: 03/23/19 Time: 09:38 Anesthesiologist:: Rolanda Martinez APRN Complications:: None Pre-procedure Diagnosis:: Degenerative disc disease lumbar spine with lumbar radiculopathy Post-procedure Diagnosis:: Same Indications for Procedure:: Patient is a pleasant 53-year-old male who presents today for intrathecal pain pump room. The patient says that he has been more active over the last couple of weeks, returning from vacation in [place] and helping his who had a recent fall with a fractured arm. He rates his pain a 7 out of 10 today. Denies side effects to his medications. Physical Exam General: Alert and oriented x3, no acute distress, pleasant and cooperative, [on room air] Lungs: Resps E/U, Symmetrical chest expansion, Eyes: PERRL Musculoskeletal: Flexion and extension of lumbar spine somewhat guarded secondary to pain, deep tendon reflexes normal, strength in upper and lower extremities [5/5], [abnormal gait noted] Neurological: speech clear, automobile accessories installer equal, no gross sensory deficits Procedure Details:: Informed consent was obtained and the risk and benefits of the procedure were explained to the patient. The patient was taken to the procedure room where noninvasive monitoring was placed including noninvasive blood pressure cuff and pulse oximeter. Patient's pump was interrogated and reprogrammed. The infusion rate was changed to periodic flow and he is now on a dose of 0.1 mg of morphine every 2 hours for total dose of 1.2 mg. The patient tolerated the procedure well. Plan and Disposition:: We will see the patient at his next appointment for refill and reprogram. He is been instructed to call the office if he has any concerns prior to his next appointment. Dr. Glover has reviewed this note and agrees with this plan of care. This note was dictated using voice recognition software and may contain errors or omissions
--- NOTE | 2019-05-12 13:37 | PC.NURSE ---
2 refills for gabapentin 600mg tid called into [facility] in [place] per provider order
== END ==
PROVIDERS: PCP Family Medicine; Visit Provider Clinical Nurse Specialist Family Health
DX: M51.16 Intervertebral disc disorders with radiculopathy, lumbar region (principal)
CPT/HCPCS: 62368

== ENCOUNTER → 2019-07-01 10:34 | Outpatient (POV) | payer MEDICARE, OTHER, SELFPAY ==
[2019-07-01 10:50] VITALS: BP 139/74; PULSE 69; RESP 18; O2SAT 98; BMI 31.1
--- NOTE | 2019-07-01 13:30 | P.PCN_ITS ---
- Procedure Date: 07/01/19 Time: 13:26 Anesthesiologist:: Tabitha Jennings APRN Complications:: None Pre-procedure Diagnosis:: Degenerative disc disease lumbar spine with lumbar radiculopathy Post-procedure Diagnosis:: Same Indications for Procedure:: Patient is a pleasant 53-year-old white male who presents today for intrathecal pain pump reprogram. He recently had his intrathecal pain pump refilled with a concentration change of morphine to 10 mg/mL. Patient says that since he had his intrathecal pump refilled, his pain has worsened. She rates his pain a 7 out of 10 today. He says it is in his low back with radiation into his left lower extremity. Patient says that the pain is the same as he had prior to having his intrathecal pain pump implanted, but says that it is worse at this time. Patient says that the pain is causing him difficulty with ambulation and with standing. He says that he does get relief when he sits. He also says that when he uses his PTC device, he gets relief. Unfortunately, he says his pain does return with him a few hours. Patient is unsure if his concentration changes related to his increased pain. Patient does feel that the intrathecal pump is working, but feels that he needs an increase in his medication. Patient does deny side effects to the medicine. His Morales #[id number] has been reviewed and is appropriate along with previous urine drug screens he is continuing with anti-inflammatories and a home stretching program. Physical exam General: Alert and oriented x3, no acute distress, pleasant and cooperative, [on room air] Lungs: Respirations even and unlabored, symmetrical chest expansion Eyes: PERRL Musculoskeletal: Flexion and extension of lumbar spine somewhat guarded secondary to pain, deep tendon reflexes normal, strength in upper and lower extremities [5/5], [abnormal gait noted] Neurological: Speech clear, sliver lap machine tender equal, no gross sensory deficit Procedure Details:: Informed consent was obtained and the risk and benefits of the procedure were explained to the patient. Patient was taken to the procedure room where noninvasive monitoring was placed including noninvasive blood pressure cuff and pulse oximeter. Patient's pump was interrogated and was reprogrammed to morphine 1.8 mg/day and his PTC device was reprogrammed to 0.18 mg up to 4 times daily. The patient tolerated the procedure well with no complications. Plan and Disposition:: Patient has been encouraged to contact the clinic if he has any problems before his next scheduled refill date. He and I did discuss that if his pain continues, he may need a catheter dye study. Patient says he does feel the intrathecal pain pump is working. He has been encouraged to call the clinic if he has any concerns before his next appointment. Dr. Glover has reviewed this note and agrees with this plan of care. This note was dictated using voice recognition software and make contain errors or omissions.
== END ==
PROVIDERS: PCP Nurse Practitioner; Visit Provider Clinical Nurse Specialist Family Health
DX: M51.16 Intervertebral disc disorders with radiculopathy, lumbar region (principal)
CPT/HCPCS: 62368

== ENCOUNTER 2020-06-05 13:17 | Day surgery (SDC) | payer MEDICARE, SELFPAY ==
[2020-06-05 13:29] VITALS: BP 140/91; PULSE 69; RESP 18; TEMP 36.6; O2SAT 97; BMI 32.5
--- NOTE | 2020-06-05 13:46 | P.PCN_ITS ---
- Procedure Date: 06/05/20 Time: 13:55 Anesthesiologist:: Rolanda Martinez APRN Complications:: None Pre-procedure Diagnosis:: Degenerative disc disease lumbar spine with lumbar radiculopathy Post-procedure Diagnosis:: Same Indications for Procedure:: Patient is a pleasant 54-year-old white male who presents today for intrathecal pain pump refill and reprogram overall he is doing well. He does have some neck pain. Patient and I have discussed in the past doing some injections when the pandemic is resolved. He rates his low back pain a 2 out of 10. He is currently on a morphine infusion 1.8 mg a day. Morales reviewed and appropriate. Urine drug screens have been appropriate in the past he does not need any changes today. Physical Exam General: Alert and oriented x3, no acute distress, pleasant and cooperative, [on room air] Lungs: Resps E/U, Symmetrical chest expansion, Eyes: PERRL Musculoskeletal: Flexion and extension of lumbar and cervical spine somewhat guarded secondary to pain, deep tendon reflexes normal, strength in upper and lower extremities [5/5], normal gait noted Neurological: speech clear, supply chain project manager equal, no gross sensory deficits Procedure Details:: Informed consent was obtained and the risk and benefits of the procedure were explained to the patient. The patient was taken to the procedure room where noninvasive monitoring was placed including noninvasive blood pressure cuff and pulse oximeter. Patient's pump was interrogated. The area over the pump was cleansed with chlorhexidine as a cleansing solution. In sterile fashion the pump was accessed with a 22-gauge needle. Approximately 5 mL's were removed of the pump solution and discarded appropriately. The pump was then refilled with 20 mL's of morphine 20 mg/mL. The needle was withdrawn and a bandage was placed over the puncture site. The infusion rate was reprogrammed to continue at 1.8 mg/day. The patient tolerated the procedure well. Plan and Disposition:: I will follow-up with the patient at his next intrathecal pain pump refill and reprogram he has been instructed to call the office if he has any issues prior to his next appointment. Dr. Glover has reviewed this note and agrees with this plan of care. This note was dictated using voice recognition software and may contain errors or omissions
[2020-06-05 13:50] VITALS: BP 138/79; PULSE 63; RESP 18
[2020-06-05 13:51] VITALS: BP 140/87; PULSE 85; RESP 18; O2SAT 98
[2020-06-05 14:05] VITALS: BP 116/79; PULSE 61; RESP 18; O2SAT 97
== END 2020-06-05 14:06 | disposition home or self-care (01) ==
LOC: SC.PAINP 13:19
PROVIDERS: PCP Nurse Practitioner; Visit Provider Clinical Nurse Specialist Family Health
DX: M51.16 Intervertebral disc disorders with radiculopathy, lumbar region (principal); Z96.89 Presence of other specified functional implants; Z87.442 Personal history of urinary calculi; Z87.39 Personal history of other diseases of the musculoskeletal system and connective tissue; Z79.899 Other long term (current) drug therapy
CPT/HCPCS: 95991

== ENCOUNTER 2020-10-02 14:40 | Day surgery (SDC) | payer MEDICARE, SELFPAY ==
[2020-10-02 14:50] VITALS: BP 131/84; PULSE 67; RESP 18; TEMP 36.6; O2SAT 98; BMI 33.0
[2020-10-02 15:15] VITALS: BP 125/87; PULSE 65; RESP 18
[2020-10-02 15:16] VITALS: BP 128/78; PULSE 85; RESP 18; O2SAT 98
--- NOTE | 2020-10-02 15:19 | HMH.PMPROC ---
- Procedure Date: 10/02/20 Time: 15:19 Anesthesiologist:: Rolanda Martinez APRN Complications:: None Pre-procedure Diagnosis:: Degenerative disc disease lumbar spine lumbar radiculopathy Post-procedure Diagnosis:: Same Indications for Procedure:: Patient is a pleasant 55-year-old white male who presents today for intrathecal pain pump refill and reprogram. Overall he is doing well he has some pain rating it a 2 out of 10 today. He is currently on a morphine infusion of 1.8 mg/day he does not need any changes. He denies side effects. [facility] #[id number] reviewed and appropriate. He is also on gabapentin 600 mg 1 p.o. 3 times daily. Procedure Details:: Informed consent was obtained and the risk and benefits of the procedure were explained to the patient. The patient was taken to the procedure room where noninvasive monitoring was placed including noninvasive blood pressure cuff and pulse oximeter. Patient's pump was interrogated. The area over the pump was cleansed with chlorhexidine as a cleansing solution. In sterile fashion the pump was accessed with a 22-gauge needle. Approximately 8 mL's were removed of the pump solution and discarded appropriately. The pump was then refilled with 20 mL's of morphine 20 mg/mL. The needle was withdrawn and a bandage was placed over the puncture site. The infusion rate was reprogrammed to 1.8 mg/day. The patient tolerated the procedure well. Plan and Disposition:: We will follow up with the patient at his next intrathecal pain pump refill and reprogram he has been instructed to call the office if he has any issues prior to his next appointment. Dr. Glover has reviewed this note and agrees with this plan of care. This note was dictated using voice recognition software and may contain errors or omissions
[2020-10-02 15:27] VITALS: BP 130/89; PULSE 61; RESP 18; O2SAT 98
== END 2020-10-02 15:28 | disposition home or self-care (01) ==
LOC: SC.PAINP 14:42
PROVIDERS: PCP Nurse Practitioner; Visit Provider Clinical Nurse Specialist Family Health
DX: M51.16 Intervertebral disc disorders with radiculopathy, lumbar region (principal)
CPT/HCPCS: 95991

== ENCOUNTER 2021-01-15 13:04 | Day surgery (SDC) | payer MEDICARE, SELFPAY ==
[2021-01-15 13:17] VITALS: BP 154/98; PULSE 63; RESP 18; TEMP 36.7; O2SAT 98; BMI 33.9
--- NOTE | 2021-01-15 13:25 | HMH.PMPROC ---
- Procedure Date: 01/15/21 Time: 13:35 Anesthesiologist:: Rolanda Martinez APRN Complications:: None Pre-procedure Diagnosis:: Degenerative disc disease lumbar spine lumbar radiculopathy and back pain Post-procedure Diagnosis:: Same Indications for Procedure:: Patient is a pleasant 55-year-old white male who presents today for intrathecal pain pump refill and reprogram. Overall doing well rating his pain today 2 out of 10. He is currently on a morphine infusion of 1.8 mg/day he denies any side effects. [facility] #[id number] reviewed and appropriate drug screens have been appropriate. Patient is currently on gabapentin 600 mg 1 p.o. 3 times daily. Procedure Details:: Informed consent was obtained and the risk and benefits of the procedure were explained to the patient. The patient was taken to the procedure room where noninvasive monitoring was placed including noninvasive blood pressure cuff and pulse oximeter. Patient's pump was interrogated. The area over the pump was cleansed with chlorhexidine as a cleansing solution. In sterile fashion the pump was accessed with a 22-gauge needle. Approximately 9 mL's were removed of the pump solution and discarded appropriately. The pump was then refilled with 20 mL's of morphine 20 mg/mL. The needle was withdrawn and a bandage was placed over the puncture site. The infusion rate was reprogrammed to continued at 1.8 mg/day. The patient tolerated the procedure well. Plan and Disposition:: we will see The patient back at his next intrathecal pain pump refill and reprogram he has been instructed to call the office if he has any issues prior to his next appointment. Dr. Glover has reviewed this note and agrees with this plan of care. This note was dictated using voice recognition software and may contain errors or omissions
[2021-01-15 13:27] VITALS: BP 147/95; PULSE 65; RESP 18; O2SAT 98
[2021-01-15 13:31] VITALS: BP 145/79; PULSE 68; RESP 18; O2SAT 98
[2021-01-15 13:46] VITALS: BP 145/93; PULSE 63; RESP 18; O2SAT 98
== END 2021-01-15 13:47 | disposition home or self-care (01) ==
LOC: SC.PAINP 13:06
PROVIDERS: PCP Nurse Practitioner; Visit Provider Clinical Nurse Specialist Family Health
DX: M51.16 Intervertebral disc disorders with radiculopathy, lumbar region (principal); Z45.1 Encounter for adjustment and management of infusion pump; M19.90 Unspecified osteoarthritis, unspecified site; G62.9 Polyneuropathy, unspecified
CPT/HCPCS: 95991

== ENCOUNTER 2021-05-21 12:55 | Day surgery (SDC) | payer MEDICARE, SELFPAY ==
[2021-05-21 12:58] VITALS: BP 125/80; PULSE 54; RESP 18; TEMP 36.6; O2SAT 97; BMI 33.9
--- NOTE | 2021-05-21 13:10 | P.PCN_ITS ---
- Procedure Date: 05/21/21 Time: 13:10 Anesthesiologist:: Tabitha Jennings APRN Complications:: None Pre-procedure Diagnosis:: Degenerative disc disease lumbar spine with lumbar radiculopathy symptoms Post-procedure Diagnosis:: Same Indications for Procedure:: Patient is a pleasant 55-year-old white male who presents today for intrathecal pain pump refill and reprogram. He has been treated for degenerative disc disease lumbar spine with lumbar radiculopathy symptoms. Patient rates his pain a 6 out of 10 today. He is doing well with his intrathecal therapy. He is also on gabapentin. He says the medication is working well for him at this time. He denies any side effects to the medicine. 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 The patient was taken to the procedure room where noninvasive monitoring was placed including noninvasive blood pressure cuff and pulse oximeter. Patient's pump was interrogated. The area over the pump was cleansed with chlorhexidine as a cleansing solution. In sterile fashion the pump was accessed with a 22-gauge needle. Approximately 8 mls of the pump solution was removed and discarded appropriately. The pump was then refilled with 20 mL's of morphine 20 mg/mL. The needle was withdrawn and a bandage was placed over the puncture site. The infusion rate was reprogrammed at continued at morphine at 1.8 mg/day. The patient tolerated well with no complication. Plan and Disposition:: Refill the patient's gabapentin 600 mg 1 tablet p.o. 3 times daily. Patient has been instructed to contact the clinic with any concerns before the next appointment. Dr. Glover has reviewed this note and agrees with this plan of care. This note was dictated using voice recognition software and make contain errors or omissions.
[2021-05-21 13:14] VITALS: BP 135/91; PULSE 60; RESP 18; O2SAT 95
[2021-05-21 13:17] VITALS: BP 135/91; PULSE 60; RESP 18; O2SAT 95
[2021-05-21 13:28] VITALS: BP 124/88; PULSE 59; RESP 18; O2SAT 98
== END 2021-05-21 13:29 | disposition home or self-care (01) ==
LOC: SC.PAINP 12:56
PROVIDERS: PCP Nurse Practitioner; Visit Provider Clinical Nurse Specialist Family Health
DX: M51.16 Intervertebral disc disorders with radiculopathy, lumbar region (principal); Z45.1 Encounter for adjustment and management of infusion pump; Z87.39 Personal history of other diseases of the musculoskeletal system and connective tissue
CPT/HCPCS: 95991

== ENCOUNTER 2021-08-27 13:23 | Day surgery (SDC) | payer MEDICARE, SELFPAY ==
[2021-08-27 13:34] VITALS: BP 142/87; PULSE 72; RESP 18; TEMP 36.4; O2SAT 96; BMI 32.5
[2021-08-27 14:02] VITALS: BP 109/82; PULSE 80; RESP 18; O2SAT 97
--- NOTE | 2021-08-27 14:02 | HMH.PMPROC ---
- Procedure Date: 08/27/21 Time: 14:03 Anesthesiologist:: Tabitha Jennings APRN Complications:: None Pre-procedure Diagnosis:: Degenerative disc disease lumbar spine with lumbar radiculopathy symptoms Post-procedure Diagnosis:: Same Indications for Procedure:: Patient is a pleasant 55-year-old who presents today for intrathecal pain pump [refill] [and reprogram]. The patient is being treated for chronic low back pain. He is having worsening left low back pain. He reports he felt a popping sensation in his left low back when getting out of the bed approximately 1 month ago. Since then he has had pain to the area. He does not want any imaging and does not want to proceed with injective therapy. He would like an increase in his intrathecal pump. He is currently on morphine at 1.8 mg/day and denies any side effects.. Patient rates pain a [ ] out of 10. Drug screen is appropriate. Morales [ ] has been reviewed and is appropriate. Physical exam General: Alert and oriented x3, no acute distress, pleasant and cooperative, [on room air] Lungs: Respirations even and unlabored, symmetrical chest expansion Eyes: PERRL Musculoskeletal: Flexion and extension of lumbar [spine] somewhat guarded secondary to pain, [antalgic gait noted] Neurological: Speech clear, no gross sensory deficit Procedure Details:: Informed consent was obtained and the risk and benefits of the procedure were explained to the patient. The patient was taken to the procedure room where noninvasive monitoring was placed including noninvasive blood pressure cuff and pulse oximeter. Patient's pump was interrogated. The area over the pump was cleansed with chlorhexidine as a cleansing solution. In sterile fashion the pump was accessed with a 22-gauge needle. Approximately 7 mls of the pump solution was removed and discarded appropriately. The pump was then refilled with 20 mL's of morphine 20 mg per male. The needle was withdrawn and a bandage was placed over the puncture site. The infusion rate was reprogrammed at morphine 2.6 mg/day. The patient tolerated well with no complication. Plan and Disposition:: We will see the patient back in the clinic at the next intrathecal refill. Patient has been instructed to contact the clinic with any concerns before the next appointment. Dr. Glover has reviewed this note and agrees with this plan of care. This note was dictated using voice recognition software and make contain errors or omissions.
[2021-08-27 14:04] VITALS: PULSE 77; RESP 18; O2SAT 96
[2021-08-27 14:20] VITALS: BP 125/85; PULSE 75; RESP 20; O2SAT 100
[2021-09-03 12:24] LABS: Acetone <.010 g/dL (0.000-0.010); Butalbital <1 ug/mL (1-10); Chlordiazepoxide <0.1 ug/mL (0.1-0.9); Diazepam <0.1 ug/mL (0.1-0.9); Ethanol <.010 g/dL (0.000-0.010); Isopropanol <.010 g/dL (0.000-0.010); Pentobarbital <1 ug/mL (1-5)
== END 2021-08-27 14:20 | disposition home or self-care (01) ==
LOC: SC.PAINP 13:24
PROVIDERS: PCP Nurse Practitioner; Visit Provider Clinical Nurse Specialist Family Health
DX: M51.16 Intervertebral disc disorders with radiculopathy, lumbar region (principal); Z45.1 Encounter for adjustment and management of infusion pump
CPT/HCPCS: 36415; 62370; 80306

== ENCOUNTER 2021-11-26 13:42 | Day surgery (SDC) | payer MEDICARE, SELFPAY ==
[2021-11-26 13:54] VITALS: BP 114/79; PULSE 80; RESP 20; O2SAT 96
[2021-11-26 13:55] VITALS: BP 132/88; PULSE 82; RESP 20; TEMP 36.8; O2SAT 96; BMI 33.9
[2021-11-26 13:58] VITALS: BP 114/74; PULSE 80; RESP 18; O2SAT 95
[2021-11-26 14:13] VITALS: BP 123/90; PULSE 76; RESP 20; O2SAT 97
--- NOTE | 2021-11-26 14:58 | HMH.PMPROC ---
- Procedure Date: 11/26/21 Time: 14:58 Anesthesiologist:: Nita Liu MD Complications:: None Pre-procedure Diagnosis:: Degenerative disc disease of lumbar spine and lumbar radiculopathy Post-procedure Diagnosis:: Same Indications for Procedure:: Patient is a very pleasant 56-year-old white male who presents today intrathecal pump refill and reprogram. He is currently being treated for degenerative disease of lumbar spine lumbar radiculopathy. He has a pump with a flow Gratiot system with intrathecal morphine 20 mg/mL at 2.16 mg/day and constant flow and PTC. He states that the current pain symptoms are adequately managing his chronic pain symptoms. Today we will perform intrathecal pump refill and reprogram with no changes to his pump settings. Procedure Details:: Informed consent was obtained and the risks and benefits of the procedure was explained to the patient. The patient was taken to the procedure room. The pump was interrogated. The area over the pump was prepped using ChloraPrep. The pump was accessed with a 22-gauge needle. Approximately 9.9 mL's of the intrathecal solution was withdrawn and discarded. The pump was then refilled with 20 mL's of intrathecal morphine 20 mg/mL]. The pump was interrogated and the infusion was continued at 2.16 mg/day]. The patient tolerated the procedure well with no complications. Next refill date is on [March 19, 2022]. Plan and Disposition:: We will follow-up with this patient on or before the next pump refill appointment make any pump adjustments at that time if indicated. I discussed with the patient the patient contact her clinic sooner should any issues arise. [facility] #[id number] was reviewed and appropriate.
[2021-11-30 18:12] LABS: Acetone <.010 g/dL (0.000-0.010); Butalbital <1 ug/mL (1-10); Chlordiazepoxide <0.1 ug/mL (0.1-0.9); Diazepam <0.1 ug/mL (0.1-0.9); Ethanol <.010 g/dL (0.000-0.010); Isopropanol <.010 g/dL (0.000-0.010); Pentobarbital <1 ug/mL (1-5)
== END 2021-11-26 14:14 | disposition home or self-care (01) ==
LOC: SC.PAINP 13:43
PROVIDERS: PCP Nurse Practitioner; Visit Provider Anesthesiology Pain Medicine
DX: M51.16 Intervertebral disc disorders with radiculopathy, lumbar region (principal); Z45.1 Encounter for adjustment and management of infusion pump
CPT/HCPCS: 36415; 80306; 95991

== ENCOUNTER 2022-03-11 13:04 | Day surgery (SDC) | payer MEDICARE, SELFPAY ==
[2022-03-11 13:41] VITALS: BP 124/79; BP 128/76; BP 131/88; PULSE 61; PULSE 75; RESP 18; TEMP 36.5; O2SAT 97; O2SAT 98; BMI 33.9
--- NOTE | 2022-03-11 13:46 | HMH.PMPROC ---
- Procedure Date: 03/11/22 Time: 13:46 Anesthesiologist:: PABLITO Hewitt Complications:: None Pre-procedure Diagnosis:: Degenerative disc disease of lumbar spine with lumbar radiculopathy symptoms Post-procedure Diagnosis:: Same Indications for Procedure:: Patient is a pleasant 48-year-old male who presents today for intrathecal pain pump refill and reprogram. The patient is being treated for degenerative disease of lumbar spine with lumbar radiculopathy symptoms. Patient is currently being managed with morphine 20 mg/mL at a rate of 2.16 mg/day. Patient denies any side effects from this medication. Patient is stable on this dose. Patient is not needing any refills. Patient rates pain a 4 out of 10. Drug screen is appropriate. [facility] [id number] with an active morphine equivalent of 0 has been reviewed and is appropriate. Were also treating this patient with gabapentin 600 mg 3 times a day. Patient is needing refills on his medication. Physical exam General: Alert and oriented x3, no acute distress, pleasant and cooperative Lungs: Respirations even and unlabored, symmetrical chest expansion Eyes: PERRL Musculoskeletal: Flexion and extension of lumbar [spine] somewhat guarded secondary to pain, [antalgic gait noted] Neurological: Speech clear, no gross sensory deficit Procedure Details:: Informed consent was obtained and the risk and benefits of the procedure were explained to the patient. The patient was taken to the procedure room where noninvasive monitoring was placed including noninvasive blood pressure cuff and pulse oximeter. Patient's pump was interrogated. The area over the pump was cleansed with chlorhexidine as a cleansing solution. [Fluoroscopy was used to access the pump]. In sterile fashion the pump was accessed with a 22-gauge needle. Approximately 7.5 mls of the pump solution was removed and discarded appropriately. The pump was then refilled with 20 mL's of morphine 20 mg/mL. The needle was withdrawn and a bandage was placed over the puncture site. The infusion rate was reprogrammed and continued at morphine 2.16 mg/day. The patient tolerated well with no complication. Plan and Disposition:: We will continue the patient's gabapentin 600 mg 3 times a day. We will provide the patient with 3 months worth of refill. We will see the patient back in the clinic at the next intrathecal refill. Patient has been instructed to contact the clinic with any concerns before the next appointment. Dr. Glover has reviewed this note and agrees with this plan of care. This note was dictated using voice recognition software and make contain errors or omissions.
[2022-03-11 13:51] VITALS: BP 122/87; PULSE 51; RESP 20; O2SAT 97
[2022-03-18 20:15] LABS: Acetone <.010 g/dL (0.000-0.010); Butalbital <1 ug/mL (1-10); Chlordiazepoxide <0.1 ug/mL (0.1-0.9); Diazepam <0.1 ug/mL (0.1-0.9); Ethanol <.010 g/dL (0.000-0.010); Isopropanol <.010 g/dL (0.000-0.010); Pentobarbital <1 ug/mL (1-5)
== END 2022-03-11 13:51 | disposition home or self-care (01) ==
LOC: SC.PAINP 13:08
PROVIDERS: PCP Nurse Practitioner; Visit Provider Student in an Organized Health Care Education/Training Program
DX: M51.16 Intervertebral disc disorders with radiculopathy, lumbar region (principal)
CPT/HCPCS: 36415; 62370; 80306; 80307

== ENCOUNTER 2022-07-02 13:04 | Day surgery (SDC) | payer MEDICARE, SELFPAY ==
[2022-07-02 13:13] VITALS: BP 132/91; PULSE 54; RESP 18; TEMP 36.6; O2SAT 98; BMI 34.3
[2022-07-02 13:23] VITALS: BP 135/91; PULSE 54; RESP 18; O2SAT 99
[2022-07-02 13:25] VITALS: BP 135/91; PULSE 54; RESP 18; O2SAT 99
--- NOTE | 2022-07-02 13:29 | P.PCN_ITS ---
Procedure Date: 07/02/22 Time: 13:25 Anesthesiologist:: Sergo Turner CRNA Complications:: None Pre-procedure Diagnosis:: Degenerative disc disease of lumbar spine with lumbar radiculopathy symptoms Post-procedure Diagnosis:: Same Indications for Procedure:: Patient is a pleasant 56-year-old male who presents today for intrathecal pain pump refill and reprogram. The patient is currently being treated for degenerative disc disease of lumbar spine with lumbar radiculopathy symptoms. Patient is currently managed with morphine 20 mg/mL at a rate of 2.16 mg/day. Patient denies any side effects from this medication. He states this medication is adequately helping manage his pain. Patient today rates his pain a 6 out of 10. Patient denies any new trauma or injury. Patient denies any change of location or type of pain he experiences. He is also managed with gabapentin 600 mg 3 times a day. Patient is requesting a refill of this medication at today's visit. Physical exam General: Alert and oriented x3, no acute distress, pleasant cooperative Lungs: Respirations even and unlabored, symmetrical chest expansion Eyes: PERRL Musculoskeletal: Flexion and extension of lumbar spine somewhat guarded secondary to pain, antalgic gait noted Neurological: Speech clear no gross sensory deficit Procedure Details:: Informed consent was obtained and the risk and benefits of the procedure were explained to the patient. The patient was taken to the procedure room where noninvasive monitoring was placed on the patient including a noninvasive blood pressure cuff and a pulse oximeter. The patient's pump was interrogated. The area over the pump was cleansed with ChloraPrep as a cleansing solution. In a sterile fashion the pump was accessed using a 22-gauge needle. Approximately 7 mL of solution was removed and discarded appropriately. The pump was then refilled with 20 mL of morphine 20 mg/mL. The needle was withdrawn and the infusion rate was continued at morphine 2.16 mg/day. The patient tolerated the procedure well with no complications. Plan and Disposition:: I will send in refill for the gabapentin 600 mg 3 times a day and provide 3- month supply of this medication. We will see the patient back in clinic at the next intrathecal pump refill date. Patient has been instructed to contact the clinic with any concerns or questions before the next appointment date. Dr. Glover is reviewed this note and agrees with this plan of care. The note was dictated using voice recognition software and may contain errors or omissions.
[2022-07-02 13:40] VITALS: BP 126/82; PULSE 58; RESP 18; O2SAT 98
== END 2022-07-02 13:40 | disposition home or self-care (01) ==
PROVIDERS: PCP Nurse Practitioner; Visit Provider Nurse Anesthetist, Certified Registered
DX: M51.16 Intervertebral disc disorders with radiculopathy, lumbar region (principal); Z45.1 Encounter for adjustment and management of infusion pump
CPT/HCPCS: 62370; 95991

== ENCOUNTER 2022-10-22 09:19 | Day surgery (SDC) | payer MEDICARE, SELFPAY ==
[2022-10-22 09:30] VITALS: BP 138/91; PULSE 62; RESP 18; TEMP 36.3; O2SAT 99; BMI 33.0
[2022-10-22 09:33] VITALS: BP 185/100; PULSE 69; RESP 18; O2SAT 98
--- NOTE | 2022-10-22 09:49 | EXP.PAIN.PRO ---
Procedure Date: 10/22/22 Time: 09:30 Anesthesiologist:: Sergo Turner CRNA Complications:: None Pre-procedure Diagnosis:: Degenerative disc disease lumbar spine multilevels. Lumbar radiculopathy. Post-procedure Diagnosis:: Same. Indications for Procedure:: Patient is a pleasant 57-year-old male that comes our clinic today for intrathecal pain pump refill. He is doing very well on his current intrathecal pain pump management. He is currently being managed with morphine sulfate 20 mg/mL at 2.16 mg/day. He is not requesting any increase or decrease. He does not complain of any side effects from his current medication. Patient rates his overall pain 1/10. Patient's ORT score was updated today and the patient remains at very low risk. Procedure Details:: Details of procedure explained the patient. The patient taken the procedure room placed in the sitting position. The area over the pump was cleansed using chlorhexidine as a cleansing solution. The pump was accessed with ease using a 22-gauge inch and a half needle. 6.8 mL of solution was removed and discarded appropriately. 6.8 mL of solution was expected. The pump was then filled incrementally with 20 cc of morphine sulfate 20 mg/mL. Plan and Disposition:: Patient was discharged without incident.
[2022-10-22 09:54] VITALS: BP 135/94; PULSE 64; RESP 18; O2SAT 99
== END 2022-10-22 09:54 | disposition home or self-care (01) ==
PROVIDERS: PCP Nurse Practitioner; Visit Provider Nurse Anesthetist, Certified Registered
DX: M51.16 Intervertebral disc disorders with radiculopathy, lumbar region (principal); Z45.1 Encounter for adjustment and management of infusion pump
CPT/HCPCS: 95991

== ENCOUNTER 2023-02-04 13:41 | Day surgery (SDC) | payer MEDICARE, SELFPAY ==
[2023-02-04 14:07] VITALS: BP 129/80; PULSE 66; RESP 18; TEMP 36.6; O2SAT 94; BMI 33.5
[2023-02-04 14:12] VITALS: BP 150/95; PULSE 74; O2SAT 97
[2023-02-04 14:13] VITALS: BP 150/95; PULSE 74; RESP 18; O2SAT 97
--- NOTE | 2023-02-04 14:16 | P.PCN_ITS ---
Procedure Date: 02/04/23 Time: 14:12 Anesthesiologist:: Sergo Turner CRNA Complications:: None Pre-procedure Diagnosis:: Degenerative disc disease lumbar spine multilevels. Lumbar radiculopathy Post-procedure Diagnosis:: Same. Indications for Procedure:: Patient is a very pleasant 57-year-old male that comes our clinic today for intrathecal pain pump interrogation and refill. Patient currently being managed with morphine sulfate 20 mg/mL at 2.16 mg/day. Patient requesting slight inc rease today. He is becoming much more active at this time a year mowing multiple yards. He describes having some increase in the lumbar back pain. Rates his pain today 5/10. Procedure Details:: Details of the procedure were explained to the patient. Patient was taken to procedure room placed in the sitting position. The area over the pump was c leansed using chlorhexidine as a cleansing solution. The pump was interrogated. The pump was accessed with ease using 22-gauge inch and half needle. 8 mL of solution was withdrawn and discarded appropriately. The pump was then filled with 20 mL of morphine sulfate 20 mg/mL. The pump was increased by 5%. His current rate will be 2.268 mg/day. Plan and Disposition:: Patient was discharged without incident.
[2023-02-04 14:27] VITALS: BP 125/75; PULSE 77; RESP 18; O2SAT 94
== END 2023-02-04 14:27 | disposition home or self-care (01) ==
PROVIDERS: PCP Nurse Practitioner; Visit Provider Nurse Anesthetist, Certified Registered
DX: Z45.1 Encounter for adjustment and management of infusion pump (principal); M51.16 Intervertebral disc disorders with radiculopathy, lumbar region
CPT/HCPCS: 62370

== ENCOUNTER 2023-05-16 13:28 | Day surgery (SDC) | payer MEDICARE, SELFPAY ==
[2023-05-16 13:45] VITALS: BP 139/79; PULSE 78; RESP 18; TEMP 36.7; O2SAT 94; BMI 33.0
[2023-05-16 14:10] VITALS: BP 150/89; PULSE 73; RESP 18; O2SAT 99
[2023-05-16 14:12] VITALS: BP 150/89; PULSE 73; RESP 18; O2SAT 99
[2023-05-16 14:18] VITALS: BP 141/91; PULSE 78; RESP 18; O2SAT 94
--- NOTE | 2023-05-16 14:25 | P.PCN_ITS ---
Procedure Date: 05/16/23 Time: 14:20 Anesthesiologist:: Sergo Turner CRNA Complications:: None Pre-procedure Diagnosis:: Degenerative disc disease lumbar spine multilevels. Lumbar radiculopathy. Post-procedure Diagnosis:: Same. Indications for Procedure:: Patient is a very pleasant 57-year-old male that comes our clinic today for intrathecal pain pump interrogation refill. Patient currently being managed with morphine sulfate 20 mg/mL at 2.2680 mg/day. Patient doing very well with h is current settings. He does not report any side effects or complications regarding the intrathecal pain pump management. Procedure Details:: As of the procedure explained to the patient. The patient taken the procedure room placed in the sitting position. The area of the pump was cleansed using chlorhexidine as a cleansing solution. The pump was interrogated. The pump was accessed with ease using a 22-gauge inch and half needle. 7.5 mL of solution was withdrawn and discarded appropriate. The pump was then filled incrementally with 20 cc of a solution containing morphine sulfate 20 mg/mL. Patient tolerated procedure without difficulty. There were no complications. Plan and Disposition:: Patient was discharged without incident.
[2023-05-20 17:12] LABS: Acetone <.010 g/dL (0.000-0.010); Butalbital <1 ug/mL (1-10); Chlordiazepoxide <0.1 ug/mL (0.1-0.9); Diazepam <0.1 ug/mL (0.1-0.9); Ethanol <.010 g/dL (0.000-0.010); Isopropanol <.010 g/dL (0.000-0.010); Pentobarbital <1 ug/mL (1-5)
== END 2023-05-16 14:18 | disposition home or self-care (01) ==
LOC: SC.PAINP 13:29
PROVIDERS: Anesthesiology; PCP Nurse Practitioner; Visit Provider Nurse Anesthetist, Certified Registered
DX: M51.16 Intervertebral disc disorders with radiculopathy, lumbar region (principal)
CPT/HCPCS: 36415; 80306; 80307; 95991

== ENCOUNTER 2023-08-19 12:58 | Day surgery (SDC) | payer MEDICARE, SELFPAY ==
[2023-08-19 13:07] VITALS: PULSE 62; O2SAT 98
[2023-08-19 13:09] VITALS: BP 150/82; PULSE 68; RESP 16; TEMP 36.4; O2SAT 97; BMI 33.0
[2023-08-19 13:17] VITALS: PULSE 62; RESP 18; O2SAT 97
--- NOTE | 2023-08-19 13:19 | EXP.PAIN.PRO ---
Procedure Date: 08/19/23 Time: 13:30 Anesthesiologist:: Sergo Turner CRNA Complications:: None Pre-procedure Diagnosis:: Degenerative disc lumbar spine multilevels. Lumbar radiculopathy Post-procedure Diagnosis:: Same. Indications for Procedure:: Patient is a very pleasant 57-year-old male that comes our clinic today for intrathecal pain pump interrogation refill. Patient currently being managed with morphine sulfate 20 mg/mL at a rate of 2.2680 mg/day. He is doing very well with his current settings. He does not request any changes today. Procedure Details:: Details of the procedure explained to the patient. The patient taken the procedure room placed in the sitting position. The area of the pumps cleansed using chlorhexidine as a cleansing solution. The pump was interrogated. The pump was accessed with ease using 22-gauge inch and half needle. 8.5 mL of solution was withdrawn discarded appropriate. The pump was then filled incrementally with 20 cc of a solution containing morphine sulfate 20 mg/mL. Patient tolerated procedure without difficulty. No complications. Plan and Disposition:: Patient was discharged out incident.
[2023-08-19 13:23] VITALS: BP 125/86; PULSE 56; RESP 16; O2SAT 97
== END 2023-08-19 13:23 | disposition home or self-care (01) ==
PROVIDERS: PCP Nurse Practitioner; Visit Provider Nurse Practitioner Family
DX: M51.16 Intervertebral disc disorders with radiculopathy, lumbar region (principal); Z97.8 Presence of other specified devices
CPT/HCPCS: 95991

== ENCOUNTER 2023-11-25 13:47 | Day surgery (SDC) | payer MEDICARE, SELFPAY ==
[2023-11-25 13:57] VITALS: BP 155/85; PULSE 70; RESP 18; TEMP 36.4; O2SAT 94; BMI 33.0
[2023-11-25 14:11] VITALS: BP 158/99; PULSE 72; RESP 18; O2SAT 94
[2023-11-25 14:12] VITALS: BP 158/99; PULSE 73; RESP 18; O2SAT 95
--- NOTE | 2023-11-25 14:16 | EXP.PAIN.PRO ---
Procedure Date: 11/25/23 Time: 14:01 Anesthesiologist:: Sergo Turner CRNA Complications:: None Pre-procedure Diagnosis:: Degenerative disc lumbar spine multilevels. Lumbar radiculopathy. Post-procedure Diagnosis:: Same Indications for Procedure:: Patient is a very pleasant 58-year-old male comes to clinic today for intrathecal pain pump interrogation refill. Patient currently being managed with morphine sulfate 20 mg/mL rate of 2.2680 mg/day. He is doing very well with his current settings. He does not request any changes. He does not report any side effects or complications. Procedure Details:: Details of the procedure explained to the patient. The patient taken to procedure room placed in sitting position. The area of the pump is cleansed using chlorhexidine's cleansing solution. The pump was interrogated. Pump was accessed with ease using a 22-gauge inch and half needle. 6.5 mL of solution was withdrawn discarded appropriate. The pump was then filled with 20 cc of solution containing morphine sulfate 20 mg/mL. The rate will continue at 2.2680 mg/day. Patient tolerated procedure without difficulty. There are no complications. Plan and Disposition:: Patient was discharged without incident.
[2023-11-25 14:20] VITALS: BP 140/84; PULSE 73; RESP 18; O2SAT 94
[2023-11-28 13:11] LABS: Acetone <.010 g/dL (0.000-0.010); Butalbital <1 ug/mL (1-10); Chlordiazepoxide <0.1 ug/mL (0.1-0.9); Diazepam <0.1 ug/mL (0.1-0.9); Ethanol <.010 g/dL (0.000-0.010); Isopropanol <.010 g/dL (0.000-0.010); Pentobarbital <1 ug/mL (1-5)
== END 2023-11-25 14:20 | disposition home or self-care (01) ==
PROVIDERS: Anesthesiology; PCP Nurse Practitioner; Visit Provider Nurse Anesthetist, Certified Registered
DX: M51.16 Intervertebral disc disorders with radiculopathy, lumbar region (principal); Z97.8 Presence of other specified devices; Z45.1 Encounter for adjustment and management of infusion pump
CPT/HCPCS: 36415; 80306; 80307; 95991

== ENCOUNTER 2024-01-22 11:32 | Outpatient (POV) | payer MEDICARE, SELFPAY ==
[2024-01-22 11:33] VITALS: BP 130/84; PULSE 66; RESP 16; O2SAT 96; BMI 33.0
--- NOTE | 2024-01-22 11:56 | A.OFFVIS_ITS ---
[facility] Pain Management SOAP Note Subjective:: Patient is a very pleasant 58-year-old male comes to clinic today for follow-up and medication refill. Today he rates his pain a 5 out of 10. Patient denies any new trauma or injury however he does state that he has been experiencing more pain around his right mid back that is sore to touch. Patient states it has been going on for the last couple weeks and he is interested in injection therapy. Patient does describe it as an aching, throbbing sensation that does interfere with his ability perform activities of daily living such as cooking and cleaning. Patient currently being managed with morphine sulfate 20 mg/mL rate of 2.2680 mg/day. He is also prescribed gabapentin 600 mg 3 times a day and meloxicam 15 mg daily. He is requesting refills on his gabapentin. He denies any side effects from this medication. His Morales has been reviewed and is appropriate. Review of Systems: General: No recent weight changes, no fever, no sleep disturbances Respiratory: No cough, no shortness of air, no recurring pulmonary infections Cardiovascular/peripheral vascular: No chest pain, no palpitations, no edema, no shortness of breath Gastrointestinal: No new onset incontinence, normal bowel movements reported Genitourinary: No new onset incontinence Musculoskeletal: Mid back pain Psychiatric: [Normal mood/affect] Neurological: [Denies weakness in extremities], [denies balance issues] Objective:: Physical Exam: General: Alert and oriented x3, no acute distress, pleasant and cooperative Lungs: Respirations even and unlabored, symmetrical chest expansion Eyes: PERRL Musculoskeletal: Flexion and extension of thoracic [spine] somewhat guarded secondary to pain, [antalgic gait noted] point tenderness along right thoracic paraspinous muscles Neurological: Speech clear, no gross sensory deficit Assessment:: Degenerative disc disease of lumbar spine with lumbar radiculopathy symptoms, myofascial pain of right thoracic paraspinous muscles Plan:: I have discussed with the patient that he may benefit from trigger point injections along his mid back due to point tenderness and limited range of motion of his thoracic spine during today's visit. Risk and benefits were discussed with the patient and he would like to proceed forward with this plan of care. I will also refill the patient's gabapentin 600 mg 3 times daily and provide a 3-month supply of this medication. I have discussed with the patient if his pain continues with no additional relief following these trigger points as well as his methocarbamol muscle relaxer that it may be beneficial to order thoracic imaging. We will follow-up with this at future visits. Patient will return to clinic for his trigger point injections of his right thoracic paraspinous muscles. Patient has been instructed to contact the clinic with any concerns before the next appointment. Dr. Glover has reviewed this note and agrees with this plan of care. This note was dictated using voice recognition software and make contain errors or omissions. [facility] Disclaimer: The information contained in this section may have been updated after the patient was seen, as this information can be updated by other users. Medical History Implantable intrathecal infusion pump present GERD (gastroesophageal reflux disease) HHT (hereditary hemorrhagic telangiectasia) Bleeding disorder Arthritis Surgical History History of nasal surgery History of knee replacement Family History Other Brain cancer Family history of cancer Lung cancer Social History Smoking Status: Never smoker second hand exposure: No alcohol intake: never current occupational status: other Travel in the last 8 weeks: None household members: spouse housing: house current occupational exposures/hazards: No caffeine: Yes
== END 2024-01-22 23:59 | disposition home or self-care (01) ==
PROVIDERS: Visit Provider Nurse Practitioner Family
DX: M51.16 Intervertebral disc disorders with radiculopathy, lumbar region (principal); M79.18 Myalgia, other site
CPT/HCPCS: 99212; G0463

== ENCOUNTER 2024-02-10 09:53 | Day surgery (SDC) | payer MEDICARE, SELFPAY ==
[2024-02-10 10:18] VITALS: BP 125/76; PULSE 65; RESP 18; O2SAT 98; BMI 33.9
[2024-02-10] MEDS: LIDOCAINE 1% 5ML PF VIAL 5 ML (10:52)
[2024-02-10] MEDS: methylPREDNISolone ACETATE 80MG/ML VIAL 80 MG (10:53)
[2024-02-10] MEDS: BUPIVACAINE 0.25% 10ML INJ 25 MG IJ (10:53)
[2024-02-10 10:57] VITALS: BP 140/98; PULSE 60; RESP 18; O2SAT 98
--- NOTE | 2024-02-10 11:22 | P.PCN_ITS ---
Procedure Date: 02/10/24 Time: 10:50 Anesthesiologist:: Sergo Turner CRNA Complications:: None Pre-procedure Diagnosis:: Myofascial pain right thoracic paraspinous muscle Post-procedure Diagnosis:: Same Indications for Procedure:: Patient is a pleasant 58-year-old male comes our clinic today for right thoracic paraspinous muscle trigger point injection of cortisone, Marcaine, lidocaine. Patient has point tenderness over a specific area approximately T10 off the midline to the right. Upon palpation I recreated his pain. We will inject at this area. Procedure Details:: Details of the procedure explained to the patient. The patient taken procedure room placed in sitting position. The area over the right thoracic paraspinous muscle was cleansed using chlorhexidine as a cleansing solution. Using a 22- gauge inch and half needle 8 cc of a solution containing 0.25% Marcaine +1% lidocaine and 40 mg of Depo-Medrol was injected after negative aspiration in and around the muscle in a fanning fashion. Patient tolerated procedure without difficulty. There are no complications. Plan and Disposition:: Patient was discharged without incident.
== END 2024-02-10 10:57 | disposition home or self-care (01) ==
LOC: SC.PAINP 09:55
PROVIDERS: PCP Nurse Practitioner; Visit Provider Nurse Anesthetist, Certified Registered
DX: M79.18 Myalgia, other site (principal)
CPT/HCPCS: 20552; J1010

== ENCOUNTER 2024-02-25 09:29 | Outpatient (POV) | payer MEDICARE, SELFPAY ==
[2024-02-25 09:58] VITALS: BP 140/88; PULSE 63; RESP 16; O2SAT 96; BMI 33.6
--- NOTE | 2024-02-25 10:13 | P.PCN_ITS ---
Procedure Date: 02/25/24 Time: 10:13 Anesthesiologist:: Whitney Walters APRN Complications:: None Pre-procedure Diagnosis:: Degenerative disc disease of lumbar spine with lumbar radiculopathy symptoms, myofascial pain of the right thoracic paraspinous muscles, mid back pain Post-procedure Diagnosis:: Same Indications for Procedure:: Patient is a pleasant 58-year-old male who presents today for follow-up of right thoracic paraspinous trigger point injections on 02/10/2024. He rates his pain today as 6 out of 10. He states he noticed no additional improvement following these injections. He states he still continues to have the mid back pain is worse with increased activity or ambulation. Patient is currently managed with morphine 20 mg/mL with a daily rate of 2.268 mg/day. He is also prescribed gabapentin 600 mg 3 times a day and meloxicam 15 mg daily which she did get a 3- month supply of these medications at his last visit. Patient denies any side effects to any of his medication. His Morales has been reviewed and is appropriate. Patient does also use compounded cream and states this helps. Physical Exam: General: Alert and oriented x3, no acute distress, pleasant and cooperative Lungs: Respirations even and unlabored, symmetrical chest expansion Eyes: PERRL Musculoskeletal: Flexion and extension of lumbar [spine] somewhat guarded secondary to pain, [antalgic gait noted] Neurological: Speech clear, no gross sensory deficit Procedure Details:: Informed consent was obtained and the risk and benefits of the procedure were explained to the patient. Patient was taken to the procedure room where noninvasive monitoring was placed including noninvasive blood pressure cuff and pulse oximeter. Patient's pump was interrogated and was reprogrammed to morphine 2.49 mg/day. The patient tolerated the procedure well with no complications. Plan and Disposition:: Patient tolerated his intrathecal increase with no complications and was discharged neurologically intact. Patient will return to clinic on or before his next intrathecal refill. We will see the patient back in the clinic at the next intrathecal refill. Patient has been instructed to contact the clinic with any concerns before the next appointment. Dr. Glover has reviewed this note and agrees with this plan of care. This note was dictated using voice recognition software and make contain errors or omissions. -- It Is medically necessary for this patient to continue to have their intrathecal pump refilled at regular intervals. This patient had an intrathecal pain pump implanted after meeting criteria of chronic intractable pain for greater than 3 months and failing conservative treatments. Patient has committed and been compliant to the treatment plan and all planned follow up care. Since imp lantation of the intrathecal pain pump, the patient has had decreased pain and been more functional. Oral medications have been reduced including intake of oral opioids. Patient continues to do well with intrathecal therapy with decrease in pain symptoms and increase in functional status. Stopping intrathecal medications can lead to life threatening withdrawal, seizures, cardiac arrest, severe pain, and possible . Pumps that are not refilled at regular intervals can be damages and cause and need for replacement. We continually titrate dose and concentration to optimize pain relief and function. We are limited in concentration for certain drugs to safely deliver medications through the pump and stay within the recommendations from the Polyanalgesic Consensus Committee Guidelines. Depending on dose and concentration these pumps may need to be refilled sooner than 3 months as we titrate.
== END 2024-02-25 23:59 | disposition home or self-care (01) ==
PROVIDERS: PCP Nurse Practitioner; Visit Provider Nurse Practitioner Family
DX: M51.16 Intervertebral disc disorders with radiculopathy, lumbar region (principal); M79.18 Myalgia, other site; Z97.8 Presence of other specified devices; Z45.1 Encounter for adjustment and management of infusion pump
CPT/HCPCS: 62368; 99212; 99213; G0463

== ENCOUNTER 2024-03-02 13:04 | Day surgery (SDC) | payer MEDICARE, SELFPAY ==
[2024-03-02 13:43] VITALS: BP 113/82; PULSE 54; PULSE 55; RESP 18; O2SAT 97
[2024-03-02 13:45] VITALS: BP 132/85; PULSE 53; RESP 18; O2SAT 98
[2024-03-02 13:46] VITALS: BP 118/78; PULSE 50; RESP 18; TEMP 36.6; O2SAT 96; BMI 33.6
--- NOTE | 2024-03-02 13:48 | EXP.PAIN.PRO ---
Procedure Date: 03/02/24 Time: 13:30 Anesthesiologist:: Sergo Turner CRNA Complications:: None Pre-procedure Diagnosis:: Degenerative disc lumbar spine multilevels. Lumbar radiculopathy. Lumbar postlaminectomy syndrome Post-procedure Diagnosis:: Same. Indications for Procedure:: Patient is a very pleasant 58-year-old male comes our clinic today for intrathecal pain pump irrigation refill. Is currently being managed morphine sulfate 20 mg/mL rated 2.5 mg/day. He is doing very well with his current settings. He is not reporting any side effects or complications. He is not requesting changes. Procedure Details:: Details of the procedure explained to the patient. The patient taken procedure and patient stated position. The area of the pump is cleansed using chlorhexidine as a cleansing solution. The pump was interrogated. The pump was accessed with ease using 22-gauge inch and half needle. 7 mL of solution was drawn discarded appropriate. The pump was then filled with 20 cc of solution containing morphine sulfate 20 mg/mL. Pump rate will remain the same 2.5 mg/day. Patient tolerated procedure without difficulty. No complications. Plan and Disposition:: Patient was discharged without incident.
== END 2024-03-02 13:48 | disposition home or self-care (01) ==
PROVIDERS: Anesthesiology; PCP Nurse Practitioner; Visit Provider Nurse Anesthetist, Certified Registered
DX: M51.16 Intervertebral disc disorders with radiculopathy, lumbar region (principal); M96.1 Postlaminectomy syndrome, not elsewhere classified; Z97.8 Presence of other specified devices; Z45.1 Encounter for adjustment and management of infusion pump
CPT/HCPCS: 36415; 95991

== ENCOUNTER 2024-06-01 11:27 | Day surgery (SDC) | payer MEDICARE, SELFPAY ==
[2024-06-01 11:33] VITALS: BP 111/75; PULSE 60; RESP 16; TEMP 36.2; O2SAT 97; BMI 32.9
--- NOTE | 2024-06-01 12:04 | EXP.PAIN.PRO ---
Procedure Date: 06/01/24 Time: 11:50 Anesthesiologist:: Sergo Turner CRNA Complications:: None Pre-procedure Diagnosis:: Degenerative disc lumbar spine multilevels. Lumbar radiculopathy. Lumbar postlaminectomy syndrome. Post-procedure Diagnosis:: Same. Indications for Procedure:: Patient very pleasant 58-year-old male who comes our clinic today for intrathecal pain pump interrogation and refill. Patient is currently being managed with morphine sulfate 20 mg/mL rated 2.5 mg/day. He is doing very well with his current settings. He is not reporting side effects or complications. He is not requesting any changes. Patient is awake alert oriented x 3. In no acute distress. Flexion-extension lumbar spine somewhat guarded secondary to pain. Deep tendon reflexes upper lower extremities normal. Motor strength upper and lower extremities normal. There is no gross sensory deficit. Gait is normal. Procedure Details:: Details of the procedure explained to the patient. The patient taken procedure room patient sitting position. The area of the pump was cleansed using chlorhexidine as a cleansing solution. The pump was interrogated. The pump was accessed with ease using a 22-gauge inch and half needle. 7.5 mL of solution was withdrawn and discarded appropriately. The pump was then filled with 20 cc of solution containing morphine sulfate 20 mg/mL. The pump rate will continue at 2.5 mg/day. Patient tolerated procedure without difficulty. No complications. Plan and Disposition:: Patient was discharged without incident.
[2024-06-01 12:10] VITALS: BP 117/80; PULSE 58; RESP 16; O2SAT 98
[2024-06-01 12:26] VITALS: BP 116/81; PULSE 55; RESP 18; O2SAT 95
[2024-06-01 12:27] VITALS: BP 116/81; PULSE 55; RESP 18; O2SAT 95
== END 2024-06-01 12:11 | disposition home or self-care (01) ==
PROVIDERS: PCP Nurse Practitioner; Visit Provider Nurse Anesthetist, Certified Registered
DX: M51.36 Other intervertebral disc degeneration, lumbar region (principal); M96.1 Postlaminectomy syndrome, not elsewhere classified
CPT/HCPCS: 95991

== ENCOUNTER 2024-09-09 10:48 | Outpatient (POV) | payer MEDICARE, SELFPAY ==
[2024-09-09 11:30] VITALS: BP 120/79; PULSE 63; RESP 16; O2SAT 95; BMI 33.2
--- NOTE | 2024-09-09 12:10 | EXP.PAIN.SOA ---
[facility] Disclaimer: The information contained in this section may have been updated after the patient was seen, as this information can be updated by other users. Medical History (Updated 09/09/24 @ 12:11 by Whitney Walters APRN) Implantable intrathecal infusion pump present GERD (gastroesophageal reflux disease) HHT (hereditary hemorrhagic telangiectasia) Bleeding disorder Arthritis Surgical History History of nasal surgery History of knee replacement Family History Other Brain cancer Family history of cancer Lung cancer Social History Smoking Status: Never smoker second hand exposure: No alcohol intake: never current occupational status: other Travel in the last 8 weeks: None household members: spouse housing: house current occupational exposures/hazards: No caffeine: Yes PM Subjective & Objective Subjective Subjective:: Patient is a pleasant 58-year-old male who presents today for medication refill and follow-up. Today he rates his pain a 4 out of 10. He denies any new trauma or injury. Patient is managed with gabapentin 600 mg 3 times daily along with an intrathecal pain pump of morphine 20 mg/mL with a daily dose of 2.5 mg/day. He denies any side effects from this medication. His Morales has been reviewed and is appropriate. Review of Systems: General: No recent weight changes, no fever, no sleep disturbances Respiratory: No cough, no shortness of air, no recurring pulmonary infections Cardiovascular/peripheral vascular: No chest pain, no palpitations, no edema, no shortness of breath Gastrointestinal: No new onset incontinence, normal bowel movements reported Genitourinary: No new onset incontinence Musculoskeletal: Low back pain Psychiatric: [Normal mood/affect] Neurological: [Denies weakness in extremities], [denies balance issues] Pain at rest (0-10 scale): 4 Objective Objective:: Physical Exam: General: Alert and oriented x3, no acute distress, pleasant and cooperative Lungs: Respirations even and unlabored, symmetrical chest expansion Eyes: PERRL Musculoskeletal: Flexion and extension of lumbar [spine] somewhat guarded secondary to pain, [antalgic gait noted] Neurological: Speech clear, no gross sensory deficit Has patient had previous pain injection?: No Conservative treatment options previously tried: Home exercise plan Length of treatment: Longer than 12 weeks Meds Home Medications and Allergies Home Medications ?Medication ?Instructions ?Recorded ?Confirmed ?Type meloxicam 15 mg tablet 15 mg PO DAILY Pain 03/13/18 02/25/24 History ferrous gluconate 240 mg (27 mg 1 tab PO DAILY Supplement 11/03/18 02/25/24 History iron) tablet omeprazole 20 mg capsule,delayed 20 mg PO DAILY Indigestion 05/21/21 02/25/24 History release gabapentin 600 mg tablet 600 mg PO TID Pain #90 tabs 09/10/23 02/25/24 Rx gabapentin 600 mg tablet 600 mg PO TID #90 tabs 03/29/24 Rx New Prescriptions to Start Prescriptions: Allergies Allergy/AdvReac Type Severity Reaction Status Date / Time No Known Allergies Allergy Verified 01/22/24 11:33 Assessment and Plan *Assessment and plan (1) Degenerative disc disease, lumbar: Status: Acute Category: Medical Code(s): M51.369 - Other intervertebral disc degeneration, lumbar region without mention of lumbar back pain or lower extremity pain Plan I will refill the patient's gabapentin and provide a 3-month supply of this medication. I did also discuss at length with the patient regarding his intrathecal pump regarding replacement. Patient has had the current pump since 2018 and this device is no longer with the company that is in production. We will follow-up with him at future visits regarding the replacement. Patient has been instructed to contact the clinic with any concerns before the next appointment. Dr. Glover has reviewed this note and agrees with this plan of care. This note was dictated using voice recognition software and make contain errors or omissions. All injections are used with Lidocaine or Bupivacaine and Depo Medrol.
== END 2024-09-09 23:59 | disposition home or self-care (01) ==
PROVIDERS: PCP Nurse Practitioner; Visit Provider Nurse Practitioner Family
DX: M51.369 Other intervertebral disc degeneration, lumbar region without mention of lumbar back pain or lower extremity pain (principal); Z96.659 Presence of unspecified artificial knee joint
CPT/HCPCS: 99212; G0463

== ENCOUNTER 2024-09-24 10:04 | Day surgery (SDC) | payer MEDICARE, SELFPAY ==
[2024-09-24 10:51] VITALS: BP 138/95; PULSE 62; RESP 16; TEMP 36.4; O2SAT 98; BMI 34.2
--- NOTE | 2024-09-24 10:54 | P.PCN_ITS ---
Procedure Date: 09/24/24 Time: 11:35 Anesthesiologist:: Whitney Walters APRN Complications:: None Pre-procedure Diagnosis:: Degenerative disc disease of lumbar spine with lumbar radiculopathy symptoms Post-procedure Diagnosis:: Same Indications for Procedure:: Patient is a pleasant 58-year-old male who presents today for intrathecal refill and reprogram. Today he rates his pain a 4 out of 10. He denies any new trauma or injury. He does state that his dosage is working well for him and his pump. Patient is currently managed with morphine 20 mg/mL with a daily dose of 2.5 mg/day. He denies any side effects from this medication. Patient does have a [employer]ix pump that is no longer in service and does need replaced. Patient does state that he would like to proceed forward with this option while it is still winter because he is very much more active during the summer months.Patient is also managed with gabapentin 600 mg 3 times daily from our office. He did just get a refill with a 3-month supply of this medication at the beginning of September. His Morales has been reviewed and is appropriate. Physical Exam: General: Alert and oriented x3, no acute distress, pleasant and cooperative Lungs: Respirations even and unlabored, symmetrical chest expansion Eyes: PERRL Musculoskeletal: Flexion and extension of lumbar [spine] somewhat guarded secondary to pain, [antalgic gait noted] Neurological: Speech clear, no gross sensory deficit Procedure Details:: Informed consent was obtained and the risk and benefits of the procedure were explained to the patient. The patient had noninvasive monitoring placed including noninvasive blood pressure cuff and pulse oximeter. Patient's pump was interrogated. The area over the pump was cleansed with chlorhexidine as a cleansing solution. In sterile fashion the pump was accessed with a 22-gauge needle. Approximately 5.3 mls of the pump solution was removed and discarded appropriately. The pump was then refilled with 20 mL's of morphine 20 mg/mL. The needle was withdrawn and a bandage was placed over the puncture site. The infusion rate was reprogrammed and morphine 2.5 mg/day. The patient tolerated well with no complication. Plan and Disposition:: Patient tolerated his intrathecal refill and reprogram with no complications and was discharged neurologically intact. I did review over with the patient the risk and benefits of intrathecal replacement and he would like to proceed forward with this plan of care. Patient has had significant improvement with the addition of the intrathecal pump and does have a pump that is currently no longer in service. Patient's catheter is noncompatible with the [employer] system. We will submit to insurance for the generator and catheter replacements and contact the patient once we have official approval. Patient has tried and failed conservative therapy including continued at home stretching exercise for longer than 12 weeks. Patient will return to clinic for his next intrathecal refill date. We will see the patient back in the clinic at the next intrathecal refill. Patient has been instructed to contact the clinic with any concerns before the next appointment. Dr. Glover has reviewed this note and agrees with this plan of care. This note was dictated using voice recognition software and make contain errors or omissions. -- It Is medically necessary for this patient to continue to have their intrathecal pump refilled at regular intervals. This patient had an intrathecal pain pump implanted after meeting criteria of chronic intractable pain for greater than 3 months and failing conservative treatments. Patient has committed and been compliant to the treatment plan and all planned follow up care. Since implantation of the intrathecal pain pump, the patient has had decreased pain and been more functional. Oral medications have been reduced including intake of oral opioids. Patient continues to do well with intrathecal therapy with decrease in pain symptoms and increase in functional status. Stopping intrathecal medications can lead to life threatening withdrawal, seizures, cardiac arrest, severe pain, and possible . Pumps that are not refilled at regular intervals can be damages and cause and need for replacement. We continually titrate dose and concentration to optimize pain relief and function. We are limited in concentration for certain drugs to safely deliver medications through the pump and stay within the recommendations from the Polyanalgesic Consensus Committee Guidelines. Depending on dose and concentration these pumps may need to be refilled sooner than 3 months as we titrate. A UDS is needed to verify patient's compliance with our office pain contract. This is ordered based off specific treatments related to chronic pain with the potential to abuse certain medications.
[2024-09-24 11:27] VITALS: BP 132/87; PULSE 64; RESP 16; O2SAT 97
[2024-09-24 11:33] VITALS: BP 132/87; PULSE 63; RESP 16; O2SAT 97
[2024-09-24 11:44] VITALS: BP 140/82; PULSE 64; RESP 16; O2SAT 97
== END 2024-09-24 11:44 | disposition home or self-care (01) ==
PROVIDERS: PCP Nurse Practitioner; Visit Provider Nurse Practitioner Family
DX: M51.16 Intervertebral disc disorders with radiculopathy, lumbar region (principal)
CPT/HCPCS: 62370

== ENCOUNTER 2024-12-15 13:15 | Outpatient (CLI) | payer MEDICARE, SELFPAY ==
[2024-12-15 14:02] VITALS: BMI 34.8
[2024-12-15 14:13] LABS: Basophils # 0.1 K/mm3 (0-0.2); Eosinophils # 0.1 K/mm3 (0.0-0.4); Eosinophils % 2.5 % (0.1-12.0); Hematocrit 35.3 % (42.0-52.0); Hemoglobin 11.8 g/dL (14.1-18.0); Lymphocytes # 1.3 K/mm3 (0.7-4.5); Lymphocytes % 25.6 % (10-50); Mean Corpuscular HGB Conc 33.4 g/dL (31.8-35.4); Mean Corpuscular Hemoglobin 29.5 pg (27.0-31.2); Mean Corpuscular Volume 88.3 fl (80-94); Mean Platelet Volume 9.2 fl (7.4-10.4); Monocytes # 0.5 K/mm3 (0.1-1.0); Monocytes % 10.1 % (1.7-9.3); Neutrophils # 3.1 K/mm3 (1.8-7.8); Neutrophils % 60.2 % (37.0-80.0); Platelet Count 234 K/mm3 (142-424); Red Cell Distribution Width 12.7 % (11.5-17.5); White Blood Count 5.2 K/mm3 (4.8-10.8)
[2024-12-15 14:44] LABS: Anion Gap 9.9 mEq/L (5-15); Blood Urea Nitrogen 11 mg/dl (9-20); Calcium 8.5 mg/dl (8.4-10.2); Carbon Dioxide 25 mmol/L (22.0-30.0); Chloride 107 mmol/L (98-107); Creatinine Clearance Estimated 128 mL/min (50-200); Estimated Glomerular Filt Rate 86 ml/min (>60); GFR (African American) 104 ML/MIN (>60); Glucose 127 mg/dl (74-100); Potassium 3.9 mmoL/L (3.5-5.1); Sodium 138 mmol/L (136-145)
--- NOTE | 2024-12-15 15:58 | ECG_ITS ---
APPROVED REPORT Exam: Resting ECG HR:72 bpm ECG Measurements Heart Rate 72 AXES WY 343 P 230 QRSd 122 QRS -17 QT 402 T 43 QTc 425 Conclusion Sinus with 1st degree AV Block Late R wave progression ABNORMAL ECG UNCONFIRMED REPORT Electronically signed by : Kolton Chung MD 12/20/2024 08:54:50
== END 2024-12-15 23:59 | disposition home or self-care (01) ==
LOC: PREOP 13:16
PROVIDERS: PCP Nurse Practitioner; Visit Provider Anesthesiology
DX: Z01.812 Encounter for preprocedural laboratory examination (principal); I44.0 Atrioventricular block, first degree; R94.31 Abnormal electrocardiogram [ECG] [EKG]
CPT/HCPCS: 80048; 85025; 93005

== ENCOUNTER 2024-12-17 09:15 | Day surgery (SDC) | payer MEDICARE, SELFPAY ==
[2024-12-15 15:12] VITALS: BMI 34.8
[2024-12-17 10:16] VITALS: BP 140/89; PULSE 68; RESP 18; TEMP 36.6; O2SAT 98
[2024-12-17] MEDS: VANCOMYCIN HCL 2,000 MG in 0.9 % SODIUM CHLORIDE 250 ML 125 MG IV (11:00)
--- NOTE | 2024-12-17 11:07 | EXP.ANES.CKL ---
[facility] Disclaimer: The information contained in this section may have been updated after the patient was seen, as this information can be updated by other users. Medical History Implantable intrathecal infusion pump present GERD (gastroesophageal reflux disease) HHT (hereditary hemorrhagic telangiectasia) Bleeding disorder Arthritis Surgical History History of nasal surgery History of knee replacement Family History Other Brain cancer Family history of cancer Lung cancer Social History Smoking Status: Former smoker second hand exposure: No alcohol intake: never substance use type: denies use current occupational status: other Travel in the last 8 weeks: None household members: spouse housing: house current occupational exposures/hazards: No caffeine: Yes [facility] Anesthesia Checklist Patient Identification Patient Identification: Arm Band Structural Data Admitted From: Home Planned Operative Procedure/s: Intrathecal Pain Pump and Generator Replacement Consent for Planned Operative Procedure(s) Verified: Yes Verified Documents: Surgical Consent and History and Physical NPO Status Verified Time NPO: 00:00 Additional verifications Anesthesia Reactions: No Hx Blood Transfusions: No Blood Transfusion Reaction: No Airway Assessment Mallampati Score:: Class II C-Spine Mobility Assessed: Yes TMJ Mobility Assessed: Yes Dentition: Good Dentition Neurological Assessment Level of Consciousness: Awake, Alert and Appropriate Anesthesia Plan Anesthesia Risk discussed: Yes Anesthesia Plan: Verified ASA Class: II Anesthesia Type: MAC
[2024-12-17] MEDS: LIDOCAINE 2% w/EPI 1:200,000 20ML VIAL 20 ML (12:37)
[2024-12-17] MEDS: LIDOCAINE 1% W/EPI 1:100,000 20ML VIAL 20 ML (12:37)
[2024-12-17] MEDS: GENTAMICIN 80 MG/2 ML VIAL (12:37)
[2024-12-17] MEDS: SODIUM CHLORIDE 0.9% 20ML VIAL 40 ML IV (12:38)
[2024-12-17 13:13] VITALS: BP 122/69; PULSE 18; RESP 18; TEMP 36.1; O2SAT 93
[2024-12-17 13:23] VITALS: BP 129/85; PULSE 73; RESP 18; O2SAT 95
[2024-12-17 13:33] VITALS: BP 134/77; PULSE 73; RESP 16; O2SAT 96
[2024-12-17 13:43] VITALS: BP 134/77; PULSE 73; RESP 16; O2SAT 96
--- NOTE | 2024-12-17 13:58 | P.OP_ITS ---
Date of procedure: 12/17/24 Pre-op Diagnosis:: Nonfunctioning intrathecal pain pump system Post-op Diagnosis:: Same Procedure performed:: Replacement pain pump system with new tunneled intrathecal catheter and pain pump generator replacement Surgeon:: Leroy Glover MD TOLL RELIEF OPERATOR:: Camilo Ramirez Anesthesia: MAC Estimated blood loss (mL): 5 Clinical Note:: The patient is a pleasant 59-year-old white male who has a nonfunctioning Flowonix pump system in place. We will replace his pain pump system today with a new tunneled intrathecal catheter and replacement of his pain pump generator. Operative findings:: None Operative note:: Informed consent was obtained risk and benefits of the procedure were explained to the patient. The patient was taken the operating room placed prone on the procedure table. He was prepped and draped in sterile fashion. C arm fluoroscopy was used to view the pain pump generator. The skin and subcutaneous tissues were anesthetized using lidocaine. I made an incision over the pain pump generator. I explained to the generator and disconnected the catheter. I tied off the catheter with 0 silk ties x 3. C-arm fluoroscopy was then used to view the lumbar spine. The skin and subcutaneous tissues adjacent to the L4-5 and L5-S1 interspace were anesthetized using lidocaine. I made an incision dissected down to the lumbar paraspinous fascia. A 17-gauge spinal needle was inserted and advanced into the L4-L5 interspace until clear CSF was obtained. After this intrathecal catheter was inserted and advanced very easily to the T9 vertebral body. The catheter was in good location it was posterior the catheter was in good location it was posterior and midline. The stylette of the catheter and the needle were withdrawn. The catheter was secured to the fascia with an anchoring device and 2-0 Prolene. I filled the pump with 20 mL of intrathecal morphine 20 mg/mL. I tunneled the catheter from the back to the pump pocket attached catheter to the pump. We are able to freely withdraw clear clear CSF through the sideport. The pump was then placed in the pocket with an antibiotic pouch. Both incisions were then closed with 2-0 Vicryl followed by 4-0 nylon and adrien. The patient was placed in an abdominal binder and taken recovery in stable condition. Pump was interrogated and started at 2.5 mg/day with PTM boluses of 0.25 mg up to 4 times a day with a 6-hour lockout. Patient tolerated the procedure well with no complications. Refill date is 03/28/2025. Patient was send discharged home neurologic intact with good relief of pain symptoms. Plan and disposition: We will follow-up with this patient in 1 week for wound check and reprogramming. Will follow-up in 2 to 3 weeks for suture and staple removal. Condition: stable Disposition: PACU Complications:: None
== END 2024-12-17 13:58 | disposition home or self-care (01) ==
PROVIDERS: PCP Nurse Practitioner; Visit Provider Anesthesiology
PROC: (CPT 62350; principal; 2024-12-17 11:05)
DX: T85.695A Other mechanical complication of other nervous system device, implant or graft, initial encounter (principal)
CPT/HCPCS: 62350; 62362; 96372; C1755; C1772; J1580; J2250; J3010; J3370

== ENCOUNTER 2024-12-17 23:18 | Emergency (ER) | payer MEDICARE, SELFPAY ==
[2024-12-17 23:20] VITALS: BP 119/70; PULSE 77; RESP 18; TEMP 36.6; O2SAT 94; BMI 33.9
--- NOTE | 2024-12-17 23:25 | ED_ITS ---
Discharge Plan Disposition Patient Disposition: Home, Self-Care Prescriptions Prescriptions: New tamsulosin 0.4 mg capsule 0.4 mg PO DAILY Qty: 30 0RF No Action omeprazole 20 MG capsule,delayed release(DR/EC) 20 mg PO DAILY Patient Comments: TAKE 1 CAPSULE BY MOUTH EVERY DAY gabapentin 600 mg tablet 600 mg PO TID Qty: 90 2RF sulfamethoxazole-trimethoprim [Bactrim DS] 800-160 mg tablet 1 tab PO BID Qty: 14 0RF meloxicam 15 MG tablet 15 mg PO DAILY ferrous gluconate 240 MG tablet 1 tab PO DAILY gabapentin 600 MG tablet 600 mg PO TID Qty: 90 2RF Referrals Follow up/Referrals: Praveena Salter APRN [Primary Care Provider] - See instructions Activity Restrictions/Add. Instructions Additional Instructions/Restrictions: Please follow-up with your team. Please keep the Hartely in place. Please begin taking the Flomax as discussed. Please return to the emergency department if you develop any new or worsening symptoms or become concerned for your health. Clinical Impressions Clinical Impression: Acute retention of urine Instructions Patient Instructions: DI for Urinary Tract Infection (UTI), DI for Urinary Tract Infection in Children Print Language Print Language: Faroese Discharge ED Provider: Martínez Pulido General Adult HPI General Chief complaint: Urogenital-Male Stated complaint: pain pump removed back,vomitiing,unable to urinate Time Seen by Provider: 12/17/24 23:25 History of Present Illness HPI narrative: 59-year-old male with history of hereditary hemorrhagic telangiectatic, chronic low back pain with history of pain pump presents for inability to urinate. Approximately 11 hours ago he underwent surgery to have a previously nonfunctioning pain pump removed and replaced with a functioning morphine pain pump. Per operative reports, the surgery went well without complication. Patient reports he has never had any trouble with urinary retention before. He has not been able to pee since the surgery. He denies any significant pain. Does report generalized weakness but no focal weakness in the legs. Denies any inguinal or rectal anesthesia. Denies any issues with bowel movements. Reports that he has had issues with bleeding as result of his HHT, primarily nosebleeds and an issue in the lungs that required an intervention. Related Data Home Medications ?Medication ?Instructions ?Recorded ?Confirmed meloxicam 15 mg tablet 15 mg PO DAILY Pain 03/13/18 12/15/24 ferrous gluconate 240 mg (27 mg 1 tab PO DAILY Supplement 11/03/18 12/15/24 iron) tablet omeprazole 20 mg capsule,delayed 20 mg PO DAILY Indigestion 05/21/21 12/15/24 release Previous Rx's ?Medication ?Instructions ?Recorded gabapentin 600 mg tablet 600 mg PO TID #90 tabs 03/29/24 gabapentin 600 mg tablet 600 mg PO TID Pain #90 tabs 09/09/24 sulfamethoxazole 800 1 tab PO BID #14 tabs 12/17/24 mg-trimethoprim 160 mg tablet (Bactrim DS) tamsulosin 0.4 mg capsule 0.4 mg PO DAILY #30 caps 12/18/24 Allergies Allergy/AdvReac Type Severity Reaction Status Date / Time adhesive tape Allergy Hives Verified 12/15/24 13:38 [facility] Disclaimer: The information contained in this section may have been updated after the patient was seen, as this information can be updated by other users. Medical History (Updated 12/18/24 @ 02:32 by Martínez Pulido MD) Implantable intrathecal infusion pump present GERD (gastroesophageal reflux disease) HHT (hereditary hemorrhagic telangiectasia) Bleeding disorder Arthritis Surgical History History of nasal surgery History of knee replacement Family History Other Brain cancer Family history of cancer Lung cancer Social History (Updated 12/17/24 @ 11:08 by Camilo Ramirez CRNA) Smoking Status: Never smoker second hand exposure: No alcohol intake: never substance use type: denies use current occupational status: other Travel in the last 8 weeks: None household members: spouse housing: house current occupational exposures/hazards: No caffeine: Yes Other Medical History Have you received the Flu Vaccine for this season: No Have you received the Pneumonia Vaccine: No ROS Obtained: Yes All systems reviewed & no additional complaints except as documented Physical Exam General General appearance: alert and in no apparent distress Head Head exam: atraumatic and normocephalic Eye Eye exam: Present normal appearance, PERRL and EOMI ENT ENT exam: Present normal oropharynx and normal external ear exam Neck Neck exam: Present normal inspection and full ROM Chest Chest inspection: Present normal inspection and symmetric chest wall rise; Absent tenderness Respiratory Respiratory exam: Present normal lung sounds bilaterally; Absent respiratory distress Cardiovascular Cardiovascular exam: Present regular rate and normal rhythm Abdominal Exam Abdominal exam: Present soft and distention (suprapubic); Absent tenderness or guarding Extremities Exam Extremities exam: Present normal inspection; Absent edema or joint swelling Back Exam Back exam: Present normal inspection; Absent tenderness Neurological Exam Neurological exam: Present alert, oriented X3 and other (Normal strength and sensation in the bilateral lower extremities. Normal sensation in the groin and perineum. Decreased rectal tone on digital rectal exam.) Psychiatric Psychiatric exam: Present normal affect and normal mood Skin Skin exam: Present warm, dry and normal color Lymphatic Lymphatic Findings: no adenopathy Medical Decision Making Medical Records Medical records reviewed: Yes I reviewed the patient's medical records. Screening: Per USPSTF and CDC recommendations, given the prevalence of disease in our region, it is our hospital?s policy to screen for HIV and viral Hepatitis for all patients aged 18 and over and those with ongoing risk factors. Morales Inquiry Pt receiving controlled substance: No Morales was queried for this patient: No Vital Signs: 12/17/24 23:20 12/18/24 00:30 12/18/24 01:00 Temperature 97.8 F Temperature Source Oral Pulse Rate 66 63 Pulse Rate [Right] 77 Respiratory Rate 18 Blood Pressure 110/79 106/59 L Blood Pressure [Right Arm] 119/70 Blood Pressure Mean 85 74 Blood Pressure Mean [Right Arm] 86 Blood Pressure Source [Right Arm] Automatic Cuff Blood Pressure Position [Right Arm] Sitting 02 Sat by Pulse Oximetry 94 L 94 L 95 Oxygen Delivery Method Room Air 12/18/24 01:30 12/18/24 02:00 Temperature Temperature Source Pulse Rate 60 72 Pulse Rate [Right] Respiratory Rate Blood Pressure 116/72 100/66 L Blood Pressure [Right Arm] Blood Pressure Mean 85 77 Blood Pressure Mean [Right Arm] Blood Pressure Source [Right Arm] Blood Pressure Position [Right Arm] 02 Sat by Pulse Oximetry 92 L 93 L Oxygen Delivery Method Lab Data Lab results reviewed: Yes I reviewed the patient's lab results. Lab Results 12/17/24 00:00: HCV Ab JAG w/Rflx PCR Qn Negative, HIV Ag/Ab Combo Qual Negative 12/17/24 23:50: WBC 6.4, RBC 3.93 L, Hgb 11.5 L, Hct 35.5 L, MCV 90.3, MCH 29.3, MCHC 32.4, RDW 12.9, Plt Count 235, MPV 9.2, Neut % (Auto) 88.0 H, Lymph % (Auto) 7.2 L, [place] % (Auto) 3.8, Eos % (Auto) 0.2, Baso % (Auto) 0.5, Neut # (Auto) 5.6, Lymph # (Auto) 0.5 L, [place] # (Auto) 0.2, Eos # (Auto) 0.0, Baso # (Auto) 0.0, PT 11.1, INR 0.99, APTT 24.8, Sodium 138, Potassium 4.3, Chloride 105, Carbon Dioxide 28, Anion Gap 9.3, BUN 13, Creatinine 1.00, Estimated Creat Clear 128, Estimated GFR 76, Est GFR ( Amer) 92, Glucose 140 H, Calcium 8.5, Total Bilirubin 0.5, AST 39, ALT 37, Alkaline Phosphatase 62, Total Protein 7.0, Albumin 4.1, Globulin 2.9, Albumin/Globulin Ratio 1.4 12/18/24 00:35: Urine Color Yellow, Urine Appearance Clear, Urine pH 6.0, Ur Specific Mcintosh > 1.030 H, Urine Protein 1+ A, Urine Glucose (UA) Negative, Urine Ketones Negative, Urine Blood Trace A, Urine Nitrate Negative, Urine Bilirubin Negative, Urine Urobilinogen 0.2, Ur Leukocyte Esterase Negative, Urine RBC 3-5, Urine WBC Occasional, Ur Squamous Epith Cells 3-5, Urine Bacteria Trace, Hyaline Casts Occ 12/17/24 23:50 12/17/24 23:50 Orders (Tests/Meds): ED MEDICATIONS Generic Name Dose Route Start Last Admin Trade Name Freq PRN Reason Stop Dose Admin Tamsulosin HCl 0.4 mg 12/18/24 21:00 Tamsulosin 0.4mg Capsule PO 01/17/25 20:59 HS RAUDEL Discontinued Medications Generic Name Dose Route Start Last Admin Trade Name Freq PRN Reason Stop Dose Admin Iopamidol 80 ml 12/18/24 00:22 12/18/24 00:23 Iopamidol-370 (76%);100ml Bottle IV 12/18/24 00:23 80 ml ONCE ONE Administration Sodium Chloride 10 ml 12/18/24 00:22 12/18/24 00:22 Sodium Chloride 0.9% 10ml Syr (Rad Only) IV 12/18/24 00:23 10 ml ONCE ONE Administration ORDERS Category Date Time Status CT lumbar spine w con Stat Cat Scan 12/17/24 23:[address] thoracic spine w con Stat Cat Scan 12/17/24 23:40 Taken CBC w/Auto Diff [Complete Blood Count Auto Diff] Stat Lab 12/17/24 23:50 Completed CMP [Comprehensive Metabolic Panel] Stat Lab 12/17/24 23:50 Completed HIV Combo Stat Lab 12/18/24 00:10 Completed Hepatitis C Ab Qual. W/ RFX Stat Lab 12/18/24 00:10 Completed PT INR [Prothrombin Time INR] Stat Lab 12/17/24 23:50 Completed PTT [Activated Partial Thrombo Time] Stat Lab 12/17/24 23:50 Completed Urinalysis and Microscopic Stat Lab 12/18/24 00:35 Completed Medical Decision Narrative: 59-year-old male with history of hereditary hemorrhagic telangiectasias presents with urinary retention since his surgery to replace his pain pump this afternoon approximately 11 hours ago. History was obtained via interactive discussion with patient, family, chart review. On arrival, patient is [afebrile, hemodynamically stable, satting appropriately, alert, oriented x4, GCS 15], moving all extremities spontaneously. Full physical exam performed and significant for normal strength and sensation of the bilateral lower extremities, normal perineal sensation, diminished rectal tone. Patient unable to void, bladder volume 500 Differential includes but is not limited to epidural hematoma, medication side effect of morphine pain pump, cauda equina, urethral obstruction Workup initiated including CBC CMP coags CT thoracic and lumbar spine with contrast. On re-evaluation, patient [remains afebrile, HD stable.] Laboratory workup independently interpreted by me and significant for normal coags, normal renal function, no significant electrolyte derangement, no leukocytosis Imaging independently interpreted by me and significant for no obvious fracture within the spine, hardware appears well-placed. See radiology read for full review of final results. I had an interactive discussion with Dr. Glover regarding presentation. He reports that this is almost certainly a side effect of the reinitiation of morphine. Given he does not have any other significant neurological deficits on exam, and and that there is no obvious evidence of mass effect on his CT, the concern for cord pathology is very low. He recommends initiation of tamsulosin and continue the Hartley catheter and he will follow-up with on Friday. Patient was agreeable to plan and was given strict return precautions including for any numbness weakness incontinence or changes in the lower extremities. Prescription sent for tamsulosin Procedures Risk/Benefits of Procedure(s) Were Explained: Yes Critical Care Critical Care Time Critical Care Time: Yes Attestation: On 12/17/24, the high probability of a clinically significant, sudden or life threatening deterioration of the following system(s) required my full and direct attention, intervention and personal management. The time I documented below is in addition to time spent performing reported procedures but includes the following listed in this critical care notation. Total Time Total Critical Care Time: 50
--- NOTE | 2024-12-17 23:40 | CT_ITS ---
PROCEDURE INFORMATION: Exam: CT Thoracic Spine With Contrast Exam date and time: 12/18/2024 12:00 AM Age: 59 years old Clinical indication: Other: Unable to void after pain pump surgery today; Additional info: Pain pump replaced today, now cant pee TECHNIQUE: Imaging protocol: Computed tomography of the thoracic spine with contrast. Radiation optimization: All CT scans at this facility use at least one of these dose optimization techniques: automated exposure control; mA and/or kV adjustment per patient size (includes targeted exams where dose is matched to clinical indication); or iterative reconstruction. Contrast material: ISOVUE; Contrast volume: 80 ml; Contrast route: IV; COMPARISON: ABDPELWO CT abdomen pelvis wo con 03/13/2018 11:40 PM FINDINGS: Tubes, catheters and devices: The intrathecal pain pump catheter appears in appropriate position with the tip positioned at the mid T9 level. Bones/joints: No acute fracture. Normal alignment. Diffuse mild degenerative disc disease and facet arthropathy No significant disc bulge or herniation. No severe spinal canal stenosis. No significant neural foraminal narrowing. Soft tissues: Unremarkable. IMPRESSION: No acute findings. Diffuse mild degenerative change. The intrathecal pain pump catheter appears in appropriate position with the tip positioned at the mid T9 level.
--- NOTE | 2024-12-17 23:40 | CT_ITS ---
PROCEDURE INFORMATION: Exam: CT Lumbar Spine With Contrast Exam date and time: 12/18/2024 12:00 AM Age: 59 years old Clinical indication: Pain; Other: Unable to void; Additional info: Pain pump replaced today, now cant pee TECHNIQUE: Imaging protocol: Computed tomography of the lumbar spine with contrast. Radiation optimization: All CT scans at this facility use at least one of these dose optimization techniques: automated exposure control; mA and/or kV adjustment per patient size (includes targeted exams where dose is matched to clinical indication); or iterative reconstruction. Contrast material: ISOVUE; Contrast volume: 80 ml; Contrast route: IV; COMPARISON: ABDPELWO CT abdomen pelvis wo con 03/13/2018 11:40 PM FINDINGS: Tubes, catheters and devices: Pain pump catheter enters the spinal canal at the L4-L5 level with the catheter positioned in the thecal sac throughout the lumbar region. Bones/joints: No acute fracture. Normal alignment. Diffuse mild degenerative disc disease. Moderate facet arthropathy L4-L5 with mild facet arthropathy the remaining levels. No significant disc herniation. There is mild narrowing disc bulge at L3-L4 with calcification in the posterior annulus. No severe spinal canal stenosis. No significant neural foraminal narrowing. Soft tissues: Unremarkable. IMPRESSION: No significant central canal abnormality. Degenerative changes are present without acute abnormality. The intrathecal pain pump catheter is located within the thecal sac throughout the lumbar region.
[2024-12-18] LABS: Basophils % 0.5 % (0.1-2.0); Eosinophils % 0.2 % (0.1-12.0); Hematocrit 35.5 % (42.0-52.0); Hemoglobin 11.5 g/dL (14.1-18.0); Lymphocytes # 0.5 K/mm3 (0.7-4.5); Lymphocytes % 7.2 % (10-50); Mean Corpuscular HGB Conc 32.4 g/dL (31.8-35.4); Mean Corpuscular Hemoglobin 29.3 pg (27.0-31.2); Mean Corpuscular Volume 90.3 fl (80-94); Mean Platelet Volume 9.2 fl (7.4-10.4); Monocytes # 0.2 K/mm3 (0.1-1.0); Monocytes % 3.8 % (1.7-9.3); Neutrophils # 5.6 K/mm3 (1.8-7.8); Platelet Count 235 K/mm3 (142-424); Red Blood Count 3.93 M/mm3 (4.60-6.20); Red Cell Distribution Width 12.9 % (11.5-17.5); White Blood Count 6.4 K/mm3 (4.8-10.8)
[2024-12-18 00:07] LABS: Albumin Level 4.1 g/dl (3.5-5.0); Chloride 105 mmol/L (98-107); Potassium 4.3 mmoL/L (3.5-5.1); Sodium 138 mmol/L (136-145)
[2024-12-18 00:09] LABS: Blood Urea Nitrogen 13 mg/dl (9-20)
[2024-12-18 00:10] LABS: Alanine Aminotransferase 37 U/L (12-78); Albumin/Globulin Ratio 1.4 (1.1-1.8); Alkaline Phosphatase 62 U/L (38-126); Anion Gap 9.3 mEq/L (5-15); Aspartate Amino Transferase 39 U/L (17-59); Bilirubin,Total 0.5 mg/dl (0.2-1.3); Calcium 8.5 mg/dl (8.4-10.2); Carbon Dioxide 28 mmol/L (22.0-30.0); Creatinine Clearance Estimated 128 mL/min (50-200); Estimated Glomerular Filt Rate 76 ml/min (>60); GFR (African American) 92 ML/MIN (>60); Globulin 2.9 g/dL (1.3-3.2); Glucose 140 mg/dl (74-100)
[2024-12-18 00:21] LABS: Activated Partial Thrombo Time 24.8 seconds (22.8-30.6); INR 0.99 (0.9-1.1); Prothrombin Time 11.1 seconds (10.1-12.5)
[2024-12-18] MEDS: SODIUM CHLORIDE 0.9% 10ML SYR (RAD ONLY) 10 ML IV (00:22)
[2024-12-18] MEDS: IOPAMIDOL-370 (76%);100ML BOTTLE 80 ML IV (00:23)
[2024-12-18 00:30] VITALS: BP 110/79; PULSE 66; O2SAT 94
--- NOTE | 2024-12-18 00:36 | PC.NURSE ---
Spoke with for a transfer, dr dos santos speaking to them at this time.
[2024-12-18 00:43] LABS: Microscopic, Urine URINE MICROSCOPIC (MICROSCOPIC)
[2024-12-18 00:47] LABS: Appearance,Urine Clear (Clear); Bilirubin,Urine Negative (Negative); Blood, Urine Trace (Negative); Color,Urine Yellow (Yellow); Glucose,Urine (UA) Negative (Negative); Ketones,Urine Negative (Negative); Nitrate,Urine Negative (Negative); Protein,Urine 1+ (Negative); Specific Gravity, Urine > 1.030 (1.005-1.030)
--- NOTE | 2024-12-18 00:47 | PC.NURSE ---
Called [facility] for pt transfer, awaiting a call back at this time
[2024-12-18 00:48] LABS: Leukocyte Esterase,Urine Negative (Negative); Urobilinogen,Urine 0.2 EU/dl (0.2)
[2024-12-18 01:00] VITALS: BP 106/59; PULSE 63; O2SAT 95
[2024-12-18 01:05] LABS: Bacteria,Urine Trace /lpf; Hyaline Casts,Urine OCC #/lpf (0); WBC,Urine Occasional #/hpf (0-3)
--- NOTE | 2024-12-18 01:19 | PC.NURSE ---
Dr. Glover is being paged
[2024-12-18 01:21] LABS: HIV Combo NEGATIVE (Negative)
[2024-12-18 01:29] LABS: Hepatitis C Ab Qual. W/ RFX NEGATIVE (Negative)
[2024-12-18 01:30] VITALS: BP 116/72; PULSE 60; O2SAT 92
--- NOTE | 2024-12-18 01:38 | PC.NURSE ---
According to Juaquin in admissions, Dr. Glover has been paged twice and no answer.
[2024-12-18 02:00] VITALS: BP 100/66; PULSE 72; O2SAT 93
[2024-12-18] MEDS: TAMSULOSIN 0.4MG CAPSULE 0.4 MG PO (02:39)
--- NOTE | 2024-12-18 02:50 | PC.NURSE ---
Patient godoy catheter bag exchanged for leg bag before patient discharge.
[2024-12-18 02:52] VITALS: BP 110/71; PULSE 71; RESP 18; TEMP 36.6; O2SAT 93
[2024-12-18] MEDS: ONDANSETRON 4MG ODT 4 MG SL (03:08)
== END 2024-12-18 02:53 | disposition home or self-care (01) ==
PROVIDERS: Emergency Provider Emergency Medicine; PCP Nurse Practitioner
DX: R33.8 Other retention of urine (principal); R53.1 Weakness; R11.10 Vomiting, unspecified
CPT/HCPCS: 51702; 72129; 72132; 80053; 81001; 85025; 85610; 85730; 86803; 87389; 99291; Q0162; Q9967

== ENCOUNTER 2024-12-20 09:26 | Outpatient (POV) | payer MEDICARE, SELFPAY ==
--- NOTE | 2024-12-20 10:11 | EXP.PAIN.PRO ---
Procedure Date: 12/20/24 Time: 10:02 Anesthesiologist:: Whitney Walters APRN Complications:: None Pre-procedure Diagnosis:: Degenerative disc disease of lumbar spine with lumbar radiculopathy symptoms, urinary retention Post-procedure Diagnosis:: Same Indications for Procedure:: Patient is a pleasant 59-year-old male who presents today for increased urinary retention following his intrathecal pump and catheter replacement on Friday. He states that he ended up coming into the ER where they ended up placing a Hartley catheter. Patient states prior to this he was not having any issues with urinary retention. Patient denies any new falls or injuries. Patient is currently managed with morphine 20 mg/mL with a daily dose of 2.502 mg/day. His Morales has been reviewed. Physical Exam: General: Alert and oriented x3, no acute distress, pleasant and cooperative Lungs: Respirations even and unlabored, symmetrical chest expansion Eyes: PERRL Musculoskeletal: Flexion and extension of lumbar [spine] somewhat guarded secondary to pain, [antalgic gait noted] Neurological: Speech clear, no gross sensory deficit Skin: Incisions are clean, dry, well-approximated with minimal erythema noted, sutures and adrien intact Procedure Details:: Informed consent was obtained and the risk and benefits of the procedure were explained to the patient. Patient did have noninvasive monitoring was placed including noninvasive blood pressure cuff and pulse oximeter. Patient's pump was interrogated and was reprogrammed to morphine 1.999 mg/day. The patient tolerated the procedure well with no complications. Plan and Disposition:: I did discuss at length with the patient regarding the urinary retention that we will decrease him down 20% today we did remove the urinary Hartley catheter. Patient was counseled to let us know how his afternoon goes and if he is able to urinate. Patient does already have a tentative appointment on we are keeping this appointment in case he does need additional adjustment down. Patient and were counseled that they can cancel this appointment if he does have improvement over the next couple of days. I will also give him an additional 1 week follow-up for this coming Friday to review over and see how he is doing. Patient was counseled to continue his postop restrictions the full 6 weeks. Patient did also make mention that he was a little lightheaded as well. We will monitor his progression following his pump decrease with this as well. Patient has been instructed to contact the clinic with any concerns before the next appointment. Dr. Glover has reviewed this note and agrees with this plan of care. This note was dictated using voice recognition software and make contain errors or omissions. -- It Is medically necessary for this patient to continue to have their intrathecal pump refilled at regular intervals. This patient had an intrathecal pain pump implanted after meeting criteria of chronic intractable pain for greater than 3 months and failing conservative treatments. Patient has committed and been compliant to the treatment plan and all planned follow up care. Since implantation of the intrathecal pain pump, the patient has had decreased pain and been more functional. Oral medications have been reduced including intake of oral opioids. Patient continues to do well with intrathecal therapy with decrease in pain symptoms and increase in functional status. Stopping intrathecal medications can lead to life threatening withdrawal, seizures, cardiac arrest, severe pain, and possible . Pumps that are not refilled at regular intervals can be damages and cause and need for replacement. We continually titrate dose and concentration to optimize pain relief and function. We are limited in concentration for certain drugs to safely deliver medications through the pump and stay within the recommendations from the Polyanalgesic Consensus Committee Guidelines. Depending on dose and concentration these pumps may need to be refilled sooner than 3 months as we titrate. A UDS is needed to verify patient's compliance with our office pain contract. This is ordered based off specific treatments related to chronic pain with the potential to abuse certain medications.
[2024-12-20 10:38] VITALS: BP 127/77; PULSE 79; RESP 18; O2SAT 94; BMI 33.9
--- NOTE | 2024-12-20 11:04 | PC.NURSE ---
Godoy catheter in place, bag anchored to R thigh with approximately 50ml yellow urine. Per Dr. Glover P/O- After removing 10ml saline from godoy tubing it was easily removed, tip intact and pt tolerated well. Pt understands all instructions regarding care.
== END 2024-12-20 23:59 | disposition home or self-care (01) ==
PROVIDERS: PCP Nurse Practitioner; Visit Provider Nurse Practitioner Family
DX: M51.16 Intervertebral disc disorders with radiculopathy, lumbar region (principal); R33.8 Other retention of urine
CPT/HCPCS: 62368; 99212; 99213; G0463

== ENCOUNTER 2024-12-20 16:01 | Emergency (ER) | payer MEDICARE, SELFPAY ==
--- NOTE | 2024-12-20 16:49 | ED_ITS ---
<Statement entered by Kerri Khan MD - 12/20/24 23:36> I was consulted by the YOLIE, and we discussed the complexity of the problems being addressed. I approved the treatment and management plan for this patient's care in the emergency department, thus performing a substantive portion of the medical decision making. Kerri Khan MD, TIA, FACEP Discharge Plan Disposition Patient Disposition: Home, Self-Care Condition: Good Prescriptions Prescriptions: No Action omeprazole 20 MG capsule,delayed release(DR/EC) 20 mg PO DAILY Patient Comments: TAKE 1 CAPSULE BY MOUTH EVERY DAY sulfamethoxazole-trimethoprim [Bactrim DS] 800-160 mg tablet 1 tab PO BID Qty: 14 0RF tamsulosin 0.4 mg capsule 0.4 mg PO DAILY Qty: 30 0RF ondansetron HCl 4 mg tablet 4 mg PO Q8H PRN (Reason: nausea and vomiting) 5 Days Qty: 30 0RF meloxicam 15 MG tablet 15 mg PO DAILY ferrous gluconate 240 MG tablet 1 tab PO DAILY gabapentin 600 MG tablet 600 mg PO TID Qty: 90 2RF Referrals Follow up/Referrals: Praveena Salter APRN [Primary Care Provider] - See instructions Ole Carbone MD [Referring] - See instructions Activity Restrictions/Add. Instructions Additional Instructions/Restrictions: Follow-up with Dr. Glover as scheduled. If you have any worsening signs or symptoms such as numbness tingling loss of bowel or bladder function return to the emergency department for evaluation. Clinical Impressions Clinical Impression: Acute retention of urine Post-operative complication Qualifiers: Surgical complication system/body Area: genitourinary Procedure type: non- genitourinary Instructions Patient Instructions: DI for Urinary Retention in Men Print Language Print Language: Nauruan Discharge ED Provider: Kerri Khan General Adult HPI General Chief complaint: Urogenital-Male Stated complaint: F/C out today now unable to pee Time Seen by Provider: 12/20/24 16:49 History of Present Illness HPI narrative: Patient presents for evaluation of urinary retention. Patient had a pain pump exchange on Friday. Postoperatively he was unable to pee and ended up in the ER. He had a Hartley catheter placed and had follow-up with Dr. Glover today. Hartley catheter was discontinued and he was instructed should he not be able to pee within 6 hours to return to the ER for evaluation. Hence he is here. He denies fever chills hemoptysis hematochezia melena nausea vomiting diarrhea. He feels the urge to go but is unable to urinate. He denies any numbness tingling paresthesias loss of bowel or bladder function. Related Data Home Medications ?Medication ?Instructions ?Recorded ?Confirmed meloxicam 15 mg tablet 15 mg PO DAILY Pain 03/13/18 12/20/24 ferrous gluconate 240 mg (27 mg 1 tab PO DAILY Supplement 11/03/18 12/20/24 iron) tablet omeprazole 20 mg capsule,delayed 20 mg PO DAILY Indigestion 05/21/21 12/20/24 release Previous Rx's ?Medication ?Instructions ?Recorded gabapentin 600 mg tablet 600 mg PO TID Pain #90 tabs 09/09/24 sulfamethoxazole 800 1 tab PO BID #14 tabs 12/17/24 mg-trimethoprim 160 mg tablet (Bactrim DS) ondansetron HCl 4 mg tablet 4 mg PO Q8H PRN nausea and 12/18/24 vomiting 5 days #30 tabs tamsulosin 0.4 mg capsule 0.4 mg PO DAILY #30 caps 12/18/24 Allergies Allergy/AdvReac Type Severity Reaction Status Date / Time adhesive tape Allergy Hives Verified 12/15/24 13:38 [facility] Disclaimer: The information contained in this section may have been updated after the patient was seen, as this information can be updated by other users. Medical History (Updated 12/20/24 @ 17:08 by PABLITO Moreno) Implantable intrathecal infusion pump present GERD (gastroesophageal reflux disease) HHT (hereditary hemorrhagic telangiectasia) Bleeding disorder Arthritis Surgical History History of nasal surgery History of knee replacement Family History Other Brain cancer Family history of cancer Lung cancer Social History Smoking Status: Never smoker second hand exposure: No alcohol intake: never substance use type: denies use current occupational status: other Travel in the last 8 weeks: None household members: spouse housing: house current occupational exposures/hazards: No caffeine: Yes Have you lived/traveled outside [place] in past 30 days?: No Contact w/someone who lives/traveled outside US past 30 days?: No Exposure to someone with infectious disease in past 14 days?: No Do you have a fever (greater than 100.4 F or 38 C)?: No Have you tested positive for COVID-19: No Exposed to someone with COVID-19 in past 14 days?: No Do you have a sore throat?: No Do you have a cough?: No Do you have any weakness?: No Do you have any diarrhea?: No Are you experiencing any unusual bleeding?: No Do you have any muscle aches/pain?: No Do you have any abdominal pain?: No Are you experiencing loss of taste or smell?: No Other Medical History Have you received the Flu Vaccine for this season: No Have you received the Pneumonia Vaccine: No ROS Obtained: Yes Systems reviewed as appropriate & no additional complaints except as documented Physical Exam General General appearance: alert and in no apparent distress Respiratory Respiratory exam: Present normal lung sounds bilaterally Cardiovascular Cardiovascular exam: Present regular rate Neurological Exam Neurological exam: Present alert and oriented X3 Medical Decision Making Medical Records Medical records reviewed: Yes I reviewed the patient's medical records. Screening: Per USPSTF and CDC recommendations, given the prevalence of disease in our region, it is our hospital?s policy to screen for HIV and viral Hepatitis for all patients aged 18 and over and those with ongoing risk factors. Morales Inquiry Pt receiving controlled substance: No Vital Signs: 12/20/24 16:55 12/20/24 17:21 12/20/24 17:30 Temperature 98.0 F 98.0 F Temperature Source Oral Oral Pulse Rate 67 Pulse Rate [Right] 87 Respiratory Rate 20 18 Blood Pressure 140/85 Blood Pressure [Right Arm] 147/88 H Blood Pressure Mean [Right Arm] 107 Blood Pressure Source Automatic Cuff Blood Pressure Source [Right Arm] Automatic Cuff 02 Sat by Pulse Oximetry 98 98 Oxygen Delivery Method Room Air Room Air Room Air Lab Data Lab results reviewed: Yes I reviewed the patient's lab results. Lab Results 12/20/24 17:08: Urine Color Yellow, Urine Appearance Clear, Urine pH 6.0, Ur Specific [place] 1.010, Urine Protein Negative, Urine Glucose (UA) Negative, Urine Ketones Negative, Urine Blood Trace A, Urine Nitrate Negative, Urine Bilirubin Negative, Urine Urobilinogen 0.2, Ur Leukocyte Esterase Negative, Urine RBC 3-5, Urine WBC Occasional, Ur Squamous Epith Cells None, Urine Bacteria Trace Orders (Tests/Meds): ORDERS Category Date Time Status Urinalysis and Microscopic Stat Lab 12/20/24 17:08 Completed Medical Decision Narrative: In summary patient is a 1-year-old male who presents to the emergency department for evaluation of postoperative complication of urinary retention. Patient is hemodynamically stable upon arrival, afebrile. Physical exam remarkable for suprapubic tenderness and a palpable bladder but no rebound or guarding or rigidity. Bowel sounds normal active.. Differential diagnosis could include prostatitis versus epidural abscess versus overactive anesthesia with the pain pump etc. however patient has no red flags for any other sequela as he has no saddle anesthesia he has no fever no chills no pain other than feeling the urge to urinate. Initial workup will be conducted with bladder scan and it shows that patient has 800 cc of urine in his bladder. Given that the patient has no red flags for any other sequela initial intervention will be to reanchor Hartley which was done successfully on first pass. Patient to follow-up with Dr. Glover for next steps. If patient has continued new or worsening signs or symptoms to return to the ER follow-up with PCP. Critical Care Critical Care Time Critical Care Time: No
[2024-12-20 16:55] VITALS: BP 147/88; PULSE 87; RESP 20; TEMP 36.7; O2SAT 98; BMI 27.1
--- NOTE | 2024-12-20 16:59 | PC.NURSE ---
SCANNED PT BLADDER AND HE HAD 810ML
[2024-12-20 17:21] VITALS: O2SAT 98
[2024-12-20 17:30] VITALS: BP 140/85; PULSE 67; RESP 18; TEMP 36.7; O2SAT 98
[2024-12-20 17:51] LABS: Microscopic, Urine URINE MICROSCOPIC (MICROSCOPIC)
[2024-12-20 18:07] LABS: Appearance,Urine Clear (Clear); Bilirubin,Urine Negative (Negative); Blood, Urine Trace (Negative); Color,Urine Yellow (Yellow); Glucose,Urine (UA) Negative (Negative); Ketones,Urine Negative (Negative); Nitrate,Urine Negative (Negative); Protein,Urine Negative (Negative); Urobilinogen,Urine 0.2 EU/dl (0.2)
[2024-12-20 18:08] LABS: Leukocyte Esterase,Urine Negative (Negative)
[2024-12-20 18:47] LABS: Bacteria,Urine Trace /lpf; WBC,Urine Occasional #/hpf (0-3)
== END 2024-12-20 17:37 | disposition home or self-care (01) ==
PROVIDERS: Physician Assistant; Emergency Provider Student in an Organized Health Care Education/Training Program; PCP Nurse Practitioner
DX: R33.8 Other retention of urine (principal); T81.9XXA Unspecified complication of procedure, initial encounter
CPT/HCPCS: 51702; 81001; 99284

== ENCOUNTER 2024-12-22 15:05 | Outpatient (POV) | payer MEDICARE, SELFPAY ==
[2024-12-22 15:24] VITALS: BP 128/79; PULSE 68; RESP 18; O2SAT 96; BMI 33.9
--- NOTE | 2024-12-22 15:55 | P.PCN_ITS ---
Procedure Date: 12/22/24 Time: 15:43 Anesthesiologist:: Whitney Walters APRN Complications:: None Pre-procedure Diagnosis:: Degenerative disc disease of lumbar spine with lumbar radiculopathy symptoms, urinary retention Post-procedure Diagnosis:: Same Indications for Procedure:: Patient is a pleasant 59-year-old male who presents today for continued urinary retention. Today he rates his pain a 0 out of 10. He states that since having this new pump placed he is not having any overall back pain however that from her last decrease where we dropped the pump 25% and took out his Hartley that he ended up going about 7 hours and still not urinating. He states that he did go to the ER as we recommended and that they did scan his bladder with over 800 [address] present[address] They did place another Hartley and then he does have this currently. He also states that he has been feeling more weak and fatigued overall since having this pump replaced. Patient states that he is not sure if this pump is just working that much more effectively or his last pump which is really not doing much of anything. Patient does also mention that he still having a little bit of itching and that has blisters that popped up around his mouth last night. Patient does also make mention that he has not had a bowel movement since his surgery on Friday. Patient is currently managed with morphine 20 mg/mL with a daily dose of 1.999 mg/day. Patient was called in antibiotic, nausea medicine and tamsulosin on Friday. He states that he is only still taking the tamsulosin. However has not noticed significant changes. His Morales has been reviewed and is appropriate. Physical Exam: General: Alert and oriented x3, no acute distress, pleasant and cooperative Lungs: Respirations even and unlabored, symmetrical chest expansion Eyes: PERRL Musculoskeletal: Flexion and extension of lumbar [spine] somewhat guarded se condary to pain, [antalgic gait noted] Neurological: Speech clear, no gross sensory deficit Procedure Details:: Informed consent was obtained and the risk and benefits of the procedure were explained to the patient. Patient did have noninvasive monitoring was placed including noninvasive blood pressure cuff and pulse oximeter. Patient's pump was interrogated and was reprogrammed to morphine 1.199 mg/day. The patient tolerated the procedure well with no complications. Plan and Disposition:: I did discuss with the patient and his regarding that we were doing a much more significant drop in his pump by 40% today. We did remove his Hartley catheter during today's office visit and he was counseled again to see how the next several hours to go and if he is able to urinate. Patient did state regarding his bowel movement history that he normally does have 1 every 2 to 3 days. 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 Patient's blisters were discussed and that it can be a stress response with everything going on and that we will continue to monitor this. Patient was counseled that if again by later this evening he is still not able to urinate and has concerns to immediately present to the ER for them to check his bladder again and possible Hartley. Patient does already have a appointment tomorrow morning with our office. We will leave this visit in place for possible additional adjustment to his pump. Patient was counseled that if he is starting to have worsening pain however that the urinary retention has resolved we will plan on making very slow increases in future. Patient agrees with this plan of care. We will plan on sending him to urology for evaluation. I did discuss with Dr. Glover regarding his continued symptoms. If he does continue to have the urinary retention we will ultimately place another Hartley and leave this send for 3 to 4 days and have it removed next week. We will follow-up with him in the morning regarding his progression. We will see the patient back in the clinic at the next intrathecal refill. Patient has been instructed to contact the clinic with any concerns before the next appointment. Dr. Glover has reviewed this note and agrees with this plan of care. This note was dictated using voice recognition software and make contain errors or omissions. -- It Is medically necessary for this patient to continue to have their intrathecal pump refilled at regular intervals. This patient had an intrathecal pain pump implanted after meeting criteria of chronic intractable pain for greater than 3 months and failing conservative treatments. Patient has committed and been compliant to the treatment plan and all planned follow up care. Since implantation of the intrathecal pain pump, the patient has had decreased pain and been more functional. Oral medications have been reduced including intake of oral opioids. Patient continues to do well with intrathecal therapy with decrease in pain symptoms and increase in functional status. Stopping intrathecal medications can lead to life threatening withdrawal, seizures, cardiac arrest, severe pain, and possible . Pumps that are not refilled at regular intervals can be damages and cause and need for replacement. We continually titrate dose and concentration to optimize pain relief and function. We are limited in concentration for certain drugs to safely deliver medications through the pump and stay within the recommendations from the Polyanalgesic Consensus Committee Guidelines. Depending on dose and concentration these pumps may need to be refilled sooner than 3 months as we titrate. A UDS is needed to verify patient's compliance with our office pain contract. This is ordered based off specific treatments related to chronic pain with the potential to abuse certain medications.
== END 2024-12-22 23:59 | disposition home or self-care (01) ==
PROVIDERS: PCP Nurse Practitioner; Visit Provider Nurse Practitioner Family
DX: M51.16 Intervertebral disc disorders with radiculopathy, lumbar region (principal); R33.8 Other retention of urine
CPT/HCPCS: 62368; 99212; 99213; G0463

== ENCOUNTER 2024-12-27 10:04 | Outpatient (POV) | payer MEDICARE, SELFPAY ==
--- NOTE | 2024-12-27 10:31 | A.OFFVIS_ITS ---
[facility] Disclaimer: The information contained in this section may have been updated after the patient was seen, as this information can be updated by other users. Medical History (Updated 12/20/24 @ 17:08 by PABLITO Moreno) Implantable intrathecal infusion pump present GERD (gastroesophageal reflux disease) HHT (hereditary hemorrhagic telangiectasia) Bleeding disorder Arthritis Surgical History History of nasal surgery History of knee replacement Family History Other Brain cancer Family history of cancer Lung cancer Social History Smoking Status: Never smoker second hand exposure: No alcohol intake: never substance use type: denies use current occupational status: other Travel in the last 8 weeks: None household members: spouse housing: house current occupational exposures/hazards: No caffeine: Yes PM Subjective & Objective Subjective Subjective:: Patient is a pleasant 59-year-old male who presents today for follow-up of his intrathecal pump implant on 12/17/2024. Patient was experiencing urinary retention previously however we have dropped his pump well enough that last week bringing it to morphine 1.199 mg/day that he has been able to urinate and not having the same issues. Patient states that he has had a bowel movement and did get the MiraLAX as we suggested. Patient does feel like he is not having the problems he was however still feels like his bladder is a little altered and that he is not urinating as frequently. Patient does rate his pain today a 0 out of 10 and states he is doing wonderful with that. He denies any other issues. His Morales has been reviewed and is appropriate. Review of Systems: General: No recent weight changes, no fever, no sleep disturbances Respiratory: No cough, no shortness of air, no recurring pulmonary infections Cardiovascular/peripheral vascular: No chest pain, no palpitations, no edema, no shortness of breath Gastrointestinal: No new onset incontinence, normal bowel movements reported Genitourinary: No new onset incontinence Musculoskeletal: Low back pain Psychiatric: [Normal mood/affect] Neurological: [Denies weakness in extremities], [denies balance issues] Pain at rest (0-10 scale): 0 Objective Objective:: Physical Exam: General: Alert and oriented x3, no acute distress, pleasant and cooperative Lungs: Respirations even and unlabored, symmetrical chest expansion Eyes: PERRL Musculoskeletal: Flexion and extension of lumbar [spine] somewhat guarded secondary to pain, [antalgic gait noted] Neurological: Speech clear, no gross sensory deficit Skin: Incision sites are clean, dry, well-approximated with no erythema noted sutures and adrien intact Has patient had previous pain injection?: No Conservative treatment options previously tried: Home exercise plan Length of treatment: Longer than 12 weeks Meds Home Medications and Allergies Home Medications ?Medication ?Instructions ?Recorded ?Confirmed ?Type meloxicam 15 mg tablet 15 mg PO DAILY Pain 03/13/18 12/22/24 History ferrous gluconate 240 mg (27 mg 1 tab PO DAILY Supplement 11/03/18 12/22/24 History iron) tablet omeprazole 20 mg capsule,delayed 20 mg PO DAILY Indigestion 05/21/21 12/22/24 History release sulfamethoxazole 800 1 tab PO BID #14 tabs 12/17/24 12/22/24 Rx mg-trimethoprim 160 mg tablet (Bactrim DS) ondansetron HCl 4 mg tablet 4 mg PO Q8H PRN nausea and 12/18/24 12/22/24 Rx vomiting 5 days #30 tabs tamsulosin 0.4 mg capsule 0.4 mg PO DAILY #30 caps 12/18/24 12/22/24 Rx gabapentin 600 mg tablet See Rx Instructions .Route 12/23/24 Rx .COMPLEX #90 tabs New Prescriptions to Start Prescriptions: Allergies Allergy/AdvReac Type Severity Reaction Status Date / Time adhesive tape Allergy Hives Verified 12/15/24 13:38 Assessment and Plan *Assessment and plan (1) Degenerative disc disease, lumbar: Status: Acute Category: Medical Code(s): M51.369 - Other intervertebral disc degeneration, lumbar region without mention of lumbar back pain or lower extremity pain Plan Patient is doing much better with the lower dosage and his intrathecal pump. I did discuss with the patient that I did send a referral for urology and that they should be getting a phone call from this provider as a precaution. Patient was counseled to still continue his postop restrictions the full 6 weeks. Patient will return to clinic in a week and a half for suture and staple removal. Patient agrees with this plan of care. I did discuss with him to let us know if there are any issues whatsoever between now and her next appointment. Patient and his agree with this plan of care. Patient has been instructed to contact the clinic with any concerns before the next appointment. Dr. Glover has reviewed this note and agrees with this plan of care. This note was dictated using voice recognition software and make contain errors or omissions. All injections are used with Lidocaine, Bupivacaine and Depo Medrol. Occasionally urine drug screen is needed to verify patient's compliance with our office pain contract. This is ordered based off specific treatments related to chronic pain with the potential to abuse certain medications.
[2024-12-27 10:48] VITALS: BP 118/77; PULSE 68; RESP 18; O2SAT 98; BMI 34.2
== END 2024-12-27 23:59 | disposition home or self-care (01) ==
LOC: SC.PAIN 10:05
PROVIDERS: PCP Nurse Practitioner; Visit Provider Nurse Practitioner Family
DX: M51.369 Other intervertebral disc degeneration, lumbar region without mention of lumbar back pain or lower extremity pain (principal); Z96.659 Presence of unspecified artificial knee joint
CPT/HCPCS: 99212; G0463

== ENCOUNTER 2025-01-10 11:16 | Outpatient (POV) | payer MEDICARE, SELFPAY ==
--- NOTE | 2025-01-10 12:02 | P.PCN_ITS ---
Procedure Date: 01/10/25 Time: 11:52 Anesthesiologist:: Whitney Walters APRN Complications:: None Pre-procedure Diagnosis:: Degenerative disc disease of lumbar spine with lumbar radiculopathy symptoms Post-procedure Diagnosis:: Same Indications for Procedure:: Patient is a pleasant 59-year-old male who presents today for suture and staple removal. Today he rates his pain a 5 out of 10. He denies any new trauma or injury. Patient is currently managed with morphine 20 mg/mL with a daily dose of 1.199 mg/day. Patient at her last visit had been doing much better and was not having any issues urinating. He states he is still continued to do well and denies any side effects. Patient was still sent for referral to urology. Today he states that he did go to this appointment and they did put her on tamsulosin twice a day. They are also ordering an ultrasound. He states he never heard any updates on getting scheduled for that ultrasound. He states he was scheduled for follow-up today to review over the ultrasound findings however he went ahead and canceled this appointment. He is managed with gabapentin 600 mg 3 times a day from our office. His Morales has been reviewed and is appropriate. Physical Exam: General: Alert and oriented x3, no acute distress, pleasant and cooperative Lungs: Respirations even and unlabored, symmetrical chest expansion Eyes: PERRL Musculoskeletal: Flexion and extension of lumbar [spine] somewhat guarded secondary to pain, [antalgic gait noted] Neurological: Speech clear, no gross sensory deficit Procedure Details:: Informed consent was obtained and the risk and benefits of the procedure were explained to the patient. Patient did have noninvasive monitoring was placed including noninvasive blood pressure cuff and pulse oximeter. Patient's pump was interrogated and was reprogrammed to morphine 1.321 mg/day. The patient tolerated the procedure well with no complications. Plan and Disposition:: Patient tolerated the procedure well with no complications and was discharged neurologically intact. Patient was able to have all his sutures and part of his adrien removed during today's visit. Patient was counseled to continue his po stop restrictions the full 6 weeks. We did only do a 5% increase and he was counseled to call us if he has any additional issues with this adjustment. Patient will return to clinic in 1 week to remove the remainder adrien. I will also send in refills on his compounded cream. We will see the patient back in the clinic at the next intrathecal refill. Patient has been instructed to contact the clinic with any concerns before the next appointment. Dr. Glover has reviewed this note and agrees with this plan of care. This note was dictated using voice recognition software and make contain errors or omissions. -- It Is medically necessary for this patient to continue to have their intrathecal pump refilled at regular intervals. This patient had an intrathecal pain pump implanted after meeting criteria of chronic intractable pain for greater than 3 months and failing conservative treatments. Patient has committed and been compliant to the treatment plan and all planned follow up care. Since implantation of the intrathecal pain pump, the patient has had decreased pain and been more functional. Oral medications have been reduced including intake of oral opioids. Patient continues to do well with intrathecal therapy with decrease in pain symptoms and increase in functional status. Stopping intrathecal medications can lead to life threatening withdrawal, seizures, cardiac arrest, severe pain, and possible . Pumps that are not refilled at regular intervals can be damages and cause and need for replacement. We continually titrate dose and concentration to optimize pain relief and function. We are limited in concentration for certain drugs to safely deliver medications through the pump and stay within the recommendations from the Polyanalgesic Consensus Committee Guidelines. Depending on dose and concentration these pumps may need to be refilled sooner than 3 months as we titrate. A UDS is needed to verify patient's compliance with our office pain contract. This is ordered based off specific treatments related to chronic pain with the potential to abuse certain medications.
[2025-01-10 13:55] VITALS: BP 106/69; PULSE 70; RESP 14; O2SAT 96; BMI 35.2
== END 2025-01-10 23:59 | disposition home or self-care (01) ==
PROVIDERS: PCP Nurse Practitioner; Visit Provider Nurse Practitioner Family
DX: M51.16 Intervertebral disc disorders with radiculopathy, lumbar region (principal)
CPT/HCPCS: 62368; 99212; G0463

== ENCOUNTER 2025-01-17 11:18 | Outpatient (POV) | payer MEDICARE, SELFPAY ==
--- NOTE | 2025-01-17 11:39 | P.PCN_ITS ---
Procedure Date: 01/17/25 Time: 11:39 Anesthesiologist:: Whitney Walters APRN Complications:: None Pre-procedure Diagnosis:: Degenerative disc disease of lumbar spine with lumbar radiculopathy symptoms Post-procedure Diagnosis:: Same Indications for Procedure:: Patient is a pleasant 59-year-old male who presents today for follow-up. Patient did have all of his sutures and most of his adrien removed at his last visit. Patient does have about [address] He denies any side e ffects or changes from our last visit. He was given a 5% increase at our last visit denies any side effects. He is currently managed with morphine 20 mg/mL with a daily dose of 1.3 to 1 mg/day. Patient is also managed with gabapentin 600 mg 3 times a day from our office. He denies any issues with this medication. His Morales has been reviewed and is appropriate. Physical Exam: General: Alert and oriented x3, no acute distress, pleasant and cooperative Lungs: Respirations even and unlabored, symmetrical chest expansion Eyes: PERRL Musculoskeletal: Flexion and extension of lumbar [spine] somewhat guarded secondary to pain, [antalgic gait noted] Neurological: Speech clear, no gross sensory deficit Procedure Details:: Informed consent was obtained and the risk and benefits of the procedure were explained to the patient. Patient did have noninvasive monitoring was placed including noninvasive blood pressure cuff and pulse oximeter. Patient's pump was interrogated and was reprogrammed to morphine 1.387 mg/day. The patient tolerated the procedure well with no complications. Plan and Disposition:: Patient tolerated the procedure well with no complications and was discharged neurologically intact. I did discuss with the patient to still continue his postop restrictions the full 6 weeks. Patient will be given a tentative 2-week follow-up for additional adjustment and repeat program however he was counseled that if he is doing well he can cancel this appointment and then we would see him back at a 1 month follow-up. He agrees and acknowledges understanding. I will also send in a 3-month supply of his gabapentin. We will see the patient back in the clinic at the next intrathecal refill. Patient has been instructed to contact the clinic with any concerns before the next appointment. Dr. Glover has reviewed this note and agrees with this plan of care. This note was dictated using voice recognition software and make contain errors or omissions. -- It Is medically necessary for this patient to continue to have their intrathecal pump refilled at regular intervals. This patient had an intrathecal pain pump implanted after meeting criteria of chronic intractable pain for greater than 3 months and failing conservative treatments. Patient has committed and been compl iant to the treatment plan and all planned follow up care. Since implantation of the intrathecal pain pump, the patient has had decreased pain and been more functional. Oral medications have been reduced including intake of oral opioids. Patient continues to do well with intrathecal therapy with decrease in pain symptoms and increase in functional status. Stopping intrathecal medications can lead to life threatening withdrawal, seizures, cardiac arrest, severe pain, and possible . Pumps that are not refilled at regular intervals can be damages and cause and need for replacement. We continually titrate dose and concentration to optimize pain relief and function. We are limited in concentration for certain drugs to safely deliver medications through the pump and stay within the recommendations from the [employer] Guidelines. Depending on dose and concentration these pumps may need to be refilled sooner than 3 months as we titrate. A UDS is needed to verify patient's compliance with our office pain contract. This is ordered based off specific treatments related to chronic pain with the potential to abuse certain medications.
[2025-01-17 11:47] VITALS: BP 111/69; PULSE 72; RESP 16; O2SAT 99; BMI 33.0
== END 2025-01-17 23:59 | disposition home or self-care (01) ==
PROVIDERS: PCP Nurse Practitioner; Visit Provider Nurse Practitioner Family
DX: M51.16 Intervertebral disc disorders with radiculopathy, lumbar region (principal)
CPT/HCPCS: 62368; 99212; 99213; G0463

== ENCOUNTER 2025-02-03 11:19 | Outpatient (POV) | payer MEDICARE, SELFPAY ==
[2025-02-03 11:53] VITALS: BP 133/85; PULSE 75; RESP 16; O2SAT 96; BMI 33.2
--- NOTE | 2025-02-03 12:04 | EXP.PAIN.PRO ---
Procedure Date: 02/03/25 Time: 12:05 Anesthesiologist:: Whitney Walters APRN Complications:: None Pre-procedure Diagnosis:: Degenerative disc disease of lumbar spine with lumbar radiculopathy symptoms, recent fall with acute mid to low back pain Post-procedure Diagnosis:: Same Indications for Procedure:: Patient is a pleasant 59-year-old male who presents today with worsening mid to low back pain. Patient does state that he had a fall yesterday where he ended up landing on his back in the grass and has had severe pain since. Patient states that he was carrying a commode outside and ended up stepping on a toy that was on the step causing him to stumble and fall back. Patient does state the pain is all around his right side at the bottom of his ribs going into his low back above the pump. Patient states that it was more severe last night and that he does have concerns whether or not if he may have gotten a rib.. Patient states it is sharp and fairly severe with certain movements. Patient is currently managed with morphine 20 mg/mL with a daily dose of 1.387 mg/day. He is also managed with gabapentin 600 mg 3 times a day. He denies any side effects. Patient does make mention that he has had no surgery from her last visit and is scheduled for an angiogram on the . Patient states that he also recently had an echo and it was fine. His Morales has been reviewed and is appropriate. Physical Exam: General: Alert and oriented x3, no acute distress, pleasant and cooperative Lungs: Respirations even and unlabored, symmetrical chest expansion Eyes: PERRL Musculoskeletal: Flexion and extension of lumbar [spine] somewhat guarded secondary to pain, [antalgic gait noted] Neurological: Speech clear, no gross sensory deficit Procedure Details:: Informed consent was obtained and the risk and benefits of the procedure were explained to the patient. Patient did have noninvasive monitoring was placed including noninvasive blood pressure cuff and pulse oximeter. Patient's pump was interrogated and was reprogrammed to morphine 1.457 mg/day. The patient tolerated the procedure well with no complications. Plan and Disposition:: Due to his recent fall with severe pain and tenderness with palpation during today's visit I will order x-ray imaging of his thoracic and lumbar spine to rule out any rib fractures. Patient was given a 5% increase today and tolerated this well with no complications. Patient will follow-up with our office in 1 week for reevaluation of symptoms and plan of care. We will see the patient back in the clinic at the next intrathecal refill. Patient has been instructed to contact the clinic with any concerns before the next appointment. Dr. Glover has reviewed this note and agrees with this plan of care. This note was dictated using voice recognition software and make contain errors or omissions. -- It Is medically necessary for this patient to continue to have their intrathecal pump refilled at regular intervals. This patient had an intrathecal pain pump implanted after meeting criteria of chronic intractable pain for greater than 3 months and failing conservative treatments. Patient has committed and been compliant to the treatment plan and all planned follow up care. Since implantation of the intrathecal pain pump, the patient has had decreased pain and been more functional. Oral medications have been reduced including intake of oral opioids. Patient continues to do well with intrathecal therapy with decrease in pain symptoms and increase in functional status. Stopping intrathecal medications can lead to life threatening withdrawal, seizures, cardiac arrest, severe pain, and possible . Pumps that are not refilled at regular intervals can be damages and cause and need for replacement. We continually titrate dose and concentration to optimize pain relief and function. We are limited in concentration for certain drugs to safely deliver medications through the pump and stay within the recommendations from the Polyanal[employer] Consensus [employer] Guidelines. Depending on dose and concentration these pumps may need to be refilled sooner than 3 months as we titrate. A UDS is needed to verify patient's compliance with our office pain contract. This is ordered based off specific treatments related to chronic pain with the potential to abuse certain medications.
--- NOTE | 2025-02-03 12:11 | XR_ITS ---
FINAL REPORT CLINICAL HISTORY: Mid back pain, recent fall COMPARISON: None FINDINGS: Three views of the thoracic spine were obtained. There is no fracture present. There is no malalignment. There are no significant degenerative changes. There are embolization coils in the left lung. IMPRESSION: No acute process. Reviewed, Interpreted and Dictated by Kentrell Ponce MD Transcribed by Rebecca Delgado Authenticated and [facility]
--- NOTE | 2025-02-03 12:11 | XR_ITS ---
FINAL REPORT CLINICAL HISTORY: Upper low back pain recent fall COMPARISON: None FINDINGS: 3 views of the lumbar spine were obtained. There is no evidence of fracture. There is no malalignment. The vertebrae are normal in height. There is moderate anterior osteophyte formation at L2-3, L3-4, and L4-5. No paraspinous soft tissue abnormalities identified. IMPRESSION: No acute bony abnormality. Moderate osteophyte formation. Reviewed, Interpreted and Dictated by Kentrell Ponce MD Transcribed by Rebecca Delgado Authenticated and [facility]
== END 2025-02-03 23:59 | disposition home or self-care (01) ==
PROVIDERS: PCP Nurse Practitioner; Visit Provider Nurse Practitioner Family
DX: M54.9 Dorsalgia, unspecified (principal); M51.16 Intervertebral disc disorders with radiculopathy, lumbar region; W19.XXXA Unspecified fall, initial encounter
CPT/HCPCS: 62368; 72072; 72100; 99212; 99213; G0463

== ENCOUNTER 2025-02-09 13:47 | Outpatient (POV) | payer MEDICARE, SELFPAY ==
--- NOTE | 2025-02-09 14:54 | P.PCN_ITS ---
Procedure Date: 02/09/25 Time: 14:55 Anesthesiologist:: Whitney Walters APRN Complications:: None Pre-procedure Diagnosis:: Degenerative disc disease lumbar spine with mid back pain and thoracic radiculopathy, chronic pain syndrome Post-procedure Diagnosis:: Same Indications for Procedure:: Patient is a very pleasant 59-year-old male who presents today for follow-up of his lumbar x-ray as well as worsening pain in his mid back. Today he does rated his pain at a 6 out of 10. Patient denies any new falls or injuries. He does state that the low back symptoms from his recent fall has seemed to improve however from our last visit he does start to notice more pain in his mid back area. Patient does state there is 1 spot in his upper mid back along the right side that does feel like a pinching sensation and then it will radiate up to his neck causing him to feel very lightheaded and dizzy and even make him feel nauseous. Patient states the pain does get severe at times. Patient is unsure whether or not if the fall caused injury in this area as well. He does state that the pain does interfere with his ability perform activities of daily living such as cooking and cleaning. Patient is currently managed with morphine 20 mg/mL with a daily dose of 1.457 mg/day. He denies any side effects. He does state that the last increase went fine and that he did not have any side effects. Patient denies any issues with urinary retention like what he had previously. His Morales has been reviewed and is appropriate. Physical Exam: General: Alert and oriented x3, no acute distress, pleasant and cooperative Lungs: Respirations even and unlabored, symmetrical chest expansion Eyes: PERRL Musculoskeletal: Flexion and extension of thoracic [spine] somewhat guarded secondary to pain, [antalgic gait noted] point tenderness along right mid back approximate T4-T5 Neurological: Speech clear, no gross sensory deficit Procedure Details:: Informed consent was obtained and the risk and benefits of the procedure were explained to the patient. Patient did have noninvasive monitoring was placed including noninvasive blood pressure cuff and pulse oximeter. Patient's pump was interrogated and was reprogrammed to flex dosing with a daily dose of 1.584 mg/day. The patient tolerated the procedure well with no complications. Plan and Disposition:: InI did discuss at length with the patient due to his worsening mid back pain that does radiate up into his neck that it may be beneficial to change his continuous pump to flex dosing. Risk and benefits were discussed with patient and he would like to proceed forward with this plan of care. We did adjust his pump settings to the flex dosing and he did tolerate this well with no complications. I did discuss with the patient that I will give him a tentative 1 week follow-up and that if he ends up not needing his appointment that he can call and cancel it. Patient is scheduled for an angiogram next Friday I did also discuss with the patient due to the continued mid back pain and pinching sensation that does cause lightheaded and dizziness that I would like to proceed forward with the MRI of the thoracic spine without contrast. Patient does agree with this plan of care. We will call him once we have insurance approval. Patient does have symptoms consistent with possible narrowing or nerve entrapment. Patient has had chronic mid back pain for longer than 6 months however does seem like his recent fall did aggravate some of the symptoms. Patient has continued conservative treatment this entire time including oral me dications, heat and ice, topicals, at home stretching exercise for longer than 12 weeks. Patient was also counseled in future he may also benefit from trigger point injections. We will follow-up with this at future visits. Patient agrees with this plan of care. Patient was reviewed over his lumbar imaging that did show multilevel moderate osteophyte formation noted at L2-L3, L3-L4 and L4-L5. Patient had no significant findings on his thoracic imaging. Patient will return to clinic in 1 week. Patient will return to clinic on or before their next intrathecal refill date. We will see the patient back in the clinic at the next intrathecal refill. Patient has been instructed to contact the clinic with any concerns before the next appointment. Dr. Glover has reviewed this note and agrees with this plan of care. This note was dictated using voice recognition software and make contain errors or omissions. -- It Is medically necessary for this patient to continue to have their intrathecal pump refilled at regular intervals. This patient had an intrathecal pain pump implanted after meeting criteria of chronic intractable pain for greater than 3 months and failing conservative treatments. Patient has committed and been compliant to the treatment plan and all planned follow up care. Since implantation of the intrathecal pain pump, the patient has had decreased pain and been more functional. Oral medications have been reduced including intake of oral opioids. Patient continues to do well with intrathecal therapy with decrease in pain symptoms and increase in functional status. Stopping intrathecal medications can lead to life threatening withdrawal, seizures, cardiac arrest, severe pain, and possible . Pumps that are not refilled at regular intervals can be damages and cause and need for replacement. We continually titrate dose and concentration to optimize pain relief and function. We are limited in concentration for certain drugs to safely deliver medications through the pump and stay within the recommendations from the Polyanalges[employer] Consensus Committee Guidelines. Depending on dose and concentration these pumps may need to be refilled sooner than 3 months as we titrate. A UDS is needed to verify patient's compliance with our office pain contract. This is ordered based off specific treatments related to chronic pain with the potential to abuse certain medications.
[2025-02-09 15:52] VITALS: BP 122/77; PULSE 74; RESP 16; O2SAT 98; BMI 33.2
== END 2025-02-09 23:59 | disposition home or self-care (01) ==
PROVIDERS: PCP Nurse Practitioner; Visit Provider Nurse Practitioner Family
DX: G89.4 Chronic pain syndrome (principal); M51.369 Other intervertebral disc degeneration, lumbar region without mention of lumbar back pain or lower extremity pain; M54.9 Dorsalgia, unspecified; M54.14 Radiculopathy, thoracic region
CPT/HCPCS: 62368; 99212; G0463

== ENCOUNTER 2025-02-15 14:49 | Outpatient (POV) | payer MEDICARE, SELFPAY ==
[2025-02-15 15:02] VITALS: BP 134/76; PULSE 76; RESP 16; O2SAT 97; BMI 31.1
--- NOTE | 2025-02-15 15:24 | EXP.PAIN.PRO ---
Procedure Date: 02/15/25 Time: 15:24 Anesthesiologist:: Whitney Walters APRN Complications:: None Pre-procedure Diagnosis:: Degenerative disc disease of cervical, thoracic and lumbar spine, chronic pain syndrome Post-procedure Diagnosis:: Same Indications for Procedure:: Patient is a pleasant 59-year-old male who presents today for intrathecal adjustment and reprogram. He rates his pain today at a 6 out of 10. At our last visit we did switch him to flex dosing. Patient denies any side effects to this however feels like it still needs additional adjustment. Patient denies any urinary retention. Patient does state that typically when he had access to his PTM device that he would use boluses generally 1 in the morning and 1 at bedtime and this really did help with the increased pain. Patient is currently managed with morphine 20 mg/mL with a daily dose of 1.584 mg/day. His Morales has been reviewed and is appropriate. Physical Exam: General: Alert and oriented x3, no acute distress, pleasant and cooperative Lungs: Respirations even and unlabored, symmetrical chest expansion Eyes: PERRL Musculoskeletal: Flexion and extension of lumbar [spine] somewhat guarded secondary to pain, [antalgic gait noted] Neurological: Speech clear, no gross sensory deficit Procedure Details:: Informed consent was obtained and the risk and benefits of the procedure were explained to the patient. Patient did have noninvasive monitoring was placed including noninvasive blood pressure cuff and pulse oximeter. Patient's pump was interrogated and was reprogrammed to morphine 1.745 mg/day. The patient tolerated the procedure well with no complications. Plan and Disposition:: Patient tolerated the procedure well with no complications and was discharged neurologically intact. We did adjust his periodic flow to boluses every 2 hours being 0.066 mg and I did employment counselor the patient that I did do a little bit higher of a dosage at the 8 AM and 10 PM timeframe when he typically would use his PTM device and made those dosages 0.08 mg. Patient agrees with this plan of care. Patient does have a lot coming up over the next couple of weeks with a MRI on the and is scheduled for heart procedure this Friday. His is also having her paddle lead placed for her spinal cord stimulator next Friday however they do not have a time. I did discuss with the patient that we will give him a tentative 3-week follow-up and that if he needs us sooner to feel free to reach out to his and we will make an appointment to adjust his pump additionally. Patient will return to clinic on or before their next intrathecal refill date. We will see the patient back in the clinic at the next intrathecal refill. Patient has been instructed to contact the clinic with any concerns before the next appointment. Dr. Glover has reviewed this note and agrees with this plan of care. This note was dictated using voice recognition software and make contain errors or omissions. -- It Is medically necessary for this patient to continue to have their intrathecal pump refilled at regular intervals. This patient had an intrathecal pain pump implanted after meeting criteria of chronic intractable pain for greater than 3 months and failing conservative treatments. Patient has committed and been compliant to the treatment plan and all planned follow up care. Since implantation of the intrathecal pain pump, the patient has had decreased pain and been more functional. Oral medications have been reduced including intake of oral opioids. Patient continues to do well with intrathecal therapy with decrease in pain symptoms and increase in functional status. Stopping intrathecal medications can lead to life threatening withdrawal, seizures, cardiac arrest, severe pain, and possible . Pumps that are not refilled at regular intervals can be damages and cause and need for replacement. We continually titrate dose and concentration to optimize pain relief and function. We are limited in concentration for certain drugs to safely deliver medications through the pump and stay within the recommendations from the Polyanalges[employer] Consensus Committee Guidelines. Depending on dose and concentration these pumps may need to be refilled sooner than 3 months as we titrate. A UDS is needed to verify patient's compliance with our office pain contract. This is ordered based off specific treatments related to chronic pain with the potential to abuse certain medications.
== END 2025-02-15 23:59 | disposition home or self-care (01) ==
PROVIDERS: PCP Nurse Practitioner; Visit Provider Nurse Practitioner Family
DX: G89.4 Chronic pain syndrome (principal); M51.369 Other intervertebral disc degeneration, lumbar region without mention of lumbar back pain or lower extremity pain; M50.30 Other cervical disc degeneration, unspecified cervical region; M51.34 Other intervertebral disc degeneration, thoracic region
CPT/HCPCS: 62368; 99212; G0463

== ENCOUNTER 2025-03-18 08:56 | Day surgery (SDC) | payer MEDICARE, SELFPAY ==
[2025-03-18 09:00] VITALS: BP 128/86; PULSE 75; RESP 16; O2SAT 98; BMI 30.3
--- NOTE | 2025-03-18 09:01 | EXP.PM.HP ---
History of Present Illness *Admission Date: 03/18/25 *Reason for visit:: Intrathecal refill; DDD *History of present illness: Same [facility] Disclaimer: The information contained in this section may have been updated after the patient was seen, as this information can be updated by other users. Medical History Implantable intrathecal infusion pump present GERD (gastroesophageal reflux disease) HHT (hereditary hemorrhagic telangiectasia) Bleeding disorder Arthritis Surgical History History of nasal surgery History of knee replacement Family History Other Brain cancer Family history of cancer Lung cancer Social History Smoking Status: Never smoker second hand exposure: No alcohol intake: never substance use type: denies use current occupational status: other Travel in the last 8 weeks?: None household members: spouse housing: house current occupational exposures/hazards: No caffeine: Yes Have you lived/traveled outside [place] in past 30 days?: No Contact w/someone who lives/traveled outside US past 30 days?: No Exposure to someone with infectious disease in past 14 days?: No Do you have a fever (greater than 100.4 F or 38 C)?: No Have you tested positive for COVID-19?: No Exposed to someone with COVID-19 in past 14 days?: No Do you have a sore throat?: No Do you have a cough?: No Do you have any weakness?: No Do you have any diarrhea?: No Are you experiencing any unusual bleeding?: No Do you have any muscle aches/pain?: No Do you have any abdominal pain?: No Are you experiencing loss of taste or smell?: No Other Medical History Have you received the Flu Vaccine for this season: No Have you received the Pneumonia Vaccine: No Review of Systems Review of Systems Review of systems:: pertinent systems reviewed and negative unless documented below Review of systems (narrative): Review of Systems: General: No recent weight changes, no fever, no sleep disturbances Respiratory: No cough, no shortness of air, no recurring pulmonary infections Cardiovascular/peripheral vascular: No chest pain, no palpitations, no edema, no shortness of breath Gastrointestinal: No new onset incontinence, normal bowel movements reported Genitourinary: No new onset incontinence Musculoskeletal: Chronic back pain Psychiatric: [Normal mood/affect] Neurological: [Denies weakness in extremities], [denies balance issues] Meds Home Medications and Allergies Home Medications ?Medication ?Instructions ?Recorded ?Confirmed ?Type meloxicam 15 mg tablet 15 mg PO DAILY Pain 03/13/18 02/09/25 History ferrous gluconate 240 mg (27 mg 1 tab PO DAILY Supplement 11/03/18 02/09/25 History iron) tablet omeprazole 20 mg capsule,delayed 20 mg PO DAILY Indigestion 05/21/21 02/09/25 History release sulfamethoxazole 800 1 tab PO BID #14 tabs 12/17/24 02/09/25 Rx mg-trimethoprim 160 mg tablet (Bactrim DS) ondansetron HCl 4 mg tablet 4 mg PO Q8H PRN nausea and 12/18/24 02/09/25 Rx vomiting 5 days #30 tabs tamsulosin 0.4 mg capsule 0.4 mg PO BID 30 days #60 caps 01/03/25 02/09/25 Rx gabapentin 600 mg tablet See Rx Instructions .Route 01/17/25 02/09/25 Rx .COMPLEX #90 tabs New Prescriptions to Start Prescriptions: Allergies Allergy/AdvReac Type Severity Reaction Status Date / Time adhesive tape Allergy Hives Verified 01/03/25 13:14 Exam Constitutional Constitutional: no acute distress *Routine HEENT Exam Head: Present normocephalic and atraumatic Eye: Present PERRL ENT: Present mucous membranes moist *Routine Neck Exam Neck: Present supple *Routine Respiratory Exam Respiratory: Present CTA bilaterally *Routine Cardiovascular Exam Cardiovascular: Present RRR *Routine Abdominal Exam Abdominal: Present soft *Routine Rectal Exam Rectal:: deferred *Routine Genitalia Exam Genitalia:: deferred Routine Back/Spine/Pelvis Exam Back/Spine: Present pain with flexion *Routine Skin Exam Skin: Present intact and warm *Routine Neurological Exam Neurological: Present alert and oriented X3 Routine Psychiatric Exam Psychiatric: Present normal affect and normal thought process Assessment and Plan *Assessment and plan (1) Pruritus: Status: Acute Category: Medical Code(s): L29.9 - Pruritus, unspecified Plan Patient has been instructed to contact the clinic with any concerns before the next appointment. Dr. Glover has reviewed this note and agrees with this plan of care. This note was dictated using voice recognition software and make contain errors or omissions. All injections are used with Lidocaine, Bupivacaine and dexamethasone. Occasionally urine drug screen is needed to verify patient's compliance with our office pain contract. This is ordered based off specific treatments related to chronic pain with the potential to abuse certain medications.
--- NOTE | 2025-03-18 09:02 | EXP.PAIN.PRO ---
Procedure Date: 03/18/25 Time: 09:30 Anesthesiologist:: Whitney Walters APRN Complications:: None Pre-procedure Diagnosis:: Degenerative disc disease of lumbar spine, chronic pain syndrome Post-procedure Diagnosis:: Same Indications for Procedure:: Patient is a pleasant 59-year-old male who presents today for intrathecal refill and reprogram. Today he rates his pain a 4 out of 10. Patient does state from our last visit he ended up having the angiogram of his brain and MRI. He states after that he had done that he ended up having altered movement in his left leg. He states they did go out from his right groin but they did discuss the possibility that they may have aggravated the nerve. Patient does state that he is going for additional testing coming up this next week to evaluate the nerve. Patient is currently in physical therapy however feels that the provider that is doing this is not pushing him enough and is interested in the possibility of starting physical therapy here at the hospital. Patient is currently managed with morphine 20 mg/mL with a daily dose of 1.745 mg/day with flex dosing. Patient does state that overall this is been doing really well for him.He is prescribed gabapentin 600 mg 3 times a day from our office. He denies any side effects. His Morales has been reviewed and is appropriate. Physical Exam: General: Alert and oriented x3, no acute distress, pleasant and cooperative Lungs: Respirations even and unlabored, symmetrical chest expansion Eyes: PERRL Musculoskeletal: Flexion and extension of lumbar [spine] somewhat guarded secondary to pain, [antalgic gait noted] Neurological: Speech clear, no gross sensory deficit Procedure Details:: Informed consent was obtained and the risk and benefits of the procedure were explained to the patient. The patient had noninvasive monitoring placed including noninvasive blood pressure cuff and pulse oximeter. Patient's pump was interrogated. The area over the pump was cleansed with chlorhexidine as a cleansing solution. In sterile fashion the pump was accessed with a 22-gauge needle. Approximately 12.1 mls of the pump solution was removed and discarded appropriately. The pump was then refilled with 20 mL's of morphine 20 mg/mL. The needle was withdrawn and a bandage was placed over the puncture site. The infusion rate was reprogrammed and continued at its current dosage. The patient tolerated well with no complication. Plan and Disposition:: Patient tolerated the procedure well with no complications and was discharged neurologically intact. Patient does have another physical therapy appointment coming up. I did discuss with the patient that if he ends up not feeling like this visit is beneficial as well that he can call us and I will put in an order for physical therapy here at [facility]. Patient agrees with this plan of care. Patient will return to clinic on or before their next intrathecal refill date. We will see the patient back in the clinic at the next intrathecal refill. Patient has been instructed to contact the clinic with any concerns before the next appointment. Dr. Glover has reviewed this note and agrees with this plan of care. This note was dictated using voice recognition software and make contain errors or omissions. -- It Is medically necessary for this patient to continue to have their intrathecal pump refilled at regular intervals. This patient had an intrathecal pain pump implanted after meeting criteria of chronic intractable pain for greater than 3 months and failing conservative treatments. Patient has committed and been compliant to the treatment plan and all planned follow up care. Since implantation of the intrathecal pain pump, the patient has had decreased pain and been more functional. Oral medications have been reduced including intake of oral opioids. Patient continues to do well with intrathecal therapy with decrease in pain symptoms and increase in functional status. Stopping intrathecal medications can lead to life threatening withdrawal, seizures, cardiac arrest, severe pain, and possible . Pumps that are not refilled at regular intervals can be damages and cause and need for replacement. We continually titrate dose and concentration to optimize pain relief and function. We are limited in concentration for certain drugs to safely deliver medications through the pump and stay within the recommendations from the Polyanalges[employer] Consensus Committee Guidelines. Depending on dose and concentration these pumps may need to be refilled sooner than 3 months as we titrate. A UDS is needed to verify patient's compliance with our office pain contract. This is ordered based off specific treatments related to chronic pain with the potential to abuse certain medications.
[2025-03-18 09:19] VITALS: BP 133/96; PULSE 77; RESP 18; O2SAT 97
[2025-03-18 09:38] VITALS: BP 136/83; PULSE 72; RESP 16; O2SAT 95
[2025-04-01 17:10] LABS: 6-Acetylmorphine Negative (.); Amphetamines IA Negative ng/mL (Cutoff:50); Barbituates IA Negative ug/mL (Cutoff:0.1); Benzodiazepines IA Negative ng/mL (Cutoff:20); Cocaine & Metabolites IA Negative ng/mL (Cutoff:25); Codeine Negative (.); Dihydrocodeine Negative (.); Fentanyl, IA Negative ng/mL (Cutoff:1.0); Hydrocodone Negative (.); Hydromorphone Negative (.); Meperidine, IA Negative ng/mL (Cutoff:100); Methadone IA Negative ng/mL (Cutoff:25); Morphine Negative (.); Opiate Confirmation Negative (.); Opiates IA Negative ng/mL (Cutoff:5); Oxycodone IA Negative ng/mL (Cutoff:5); Phencyclidine IA Negative ng/mL (Cutoff:8); Propoxyphene IA Negative ng/mL (Cutoff:50); THC (marijauna) metabolite IA Negative ng/mL (Cutoff:5); Tramadol, IA Negative ng/mL (Cutoff:50)
== END 2025-03-18 09:38 | disposition home or self-care (01) ==
PROVIDERS: PCP Nurse Practitioner; Visit Provider Nurse Practitioner Family
DX: Z45.1 Encounter for adjustment and management of infusion pump (principal); M51.369 Other intervertebral disc degeneration, lumbar region without mention of lumbar back pain or lower extremity pain; G89.4 Chronic pain syndrome; K21.9 Gastro-esophageal reflux disease without esophagitis; I78.0 Hereditary hemorrhagic telangiectasia; M19.90 Unspecified osteoarthritis, unspecified site; Z79.899 Other long term (current) drug therapy; Z88.8 Allergy status to other drugs, medicaments and biological substances; L29.9 Pruritus, unspecified
CPT/HCPCS: 36415; 80307

== ENCOUNTER 2025-07-01 09:18 | Outpatient (CLI) | payer MEDICARE, SELFPAY ==
--- OUTSIDE RECORDS SUMMARY | 2025-07-01 09:29 | XMS_ITS | Clinical Summary ---
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 186987102 (SNOMED CT) 11/16 Active 01/25 Trinidad Mahoney Pulmonary arteriovenous malformation Imported from [facility]: [facility] ( 5 at 12:40:27 PM) Presence of intrathecal pump Z97.8 (ICD-10-CM ) 02/04 Active 01/25 Trinidad Mahoney Presence of other specified devices Imported from [facility]: [facility] ( 5 at 12:40:27 PM) OVERWEIGHT 397743139 (SNOMED CT) Active Chasity Day MA Overweight HEREDITARY HEMORRHAGIC TELANGIECTASI A 32557204 (SNOMED CT) Active Chasity Day MA [place]ler hemorrhagic telangiectasia syndrome ARTERIOVENOUS MALFORMATION OF BRAIN 854386594 (SNOMED CT) Active Chasity Day MA Cerebral arteriovenous malformation Medications Medication Instructions Start Date Stop Date Generic Name NDC Provider TAMSULOSIN HCL 0.4 MG CAPS tamsulosin 01424633651 Azaese Mahoney MELOXICAM 15 MG TABS tablet by mouth meloxicam [id number] Azadvjosefina Mahoney GABAPENTIN 600 MG TABS tablet by mouth gabapentin 10970160072 Trinidad Mahoney FERROUS SULFATE 325 (65 Fe) MG TABS tablet by mouth ferrous sulfate 58970620119 Trinidad Mahoney TAMSULOSIN HCL 0.4 MG CAPS tamsulosin 80497886812 Trinidad Mahoney OMEPRAZOLE 20 MG CPDR omeprazole 71188168338 Trinidad Mahoney SIMVASTATIN 20 MG TABS simvastatin 30191189461 Trinidad Mahoney NASAL SPRAY 12 HOUR 0.05 % SOLN INSTILL 3 SPRAYS BY NASAL ROUTE 2 TIMES DAILY. oxymetazoline [id number] Trinidad Mahoney ONDANSETRON HCL 4 MG TABS ondansetron hcl 78172916312 Trinidad Mahoney MELOXICAM 15 MG TABS Historical Medication MELOXICAM [id number] Chasity Day MA FERROUS SULFATE 325 (65 Fe) MG TABS Historical Medication FERROUS SULFATE [id number] Chasity Day MA GABAPENTIN 600 MG TABS Historical Medication GABAPENTIN [id number] Chasity Day MA Medications Administered No information available. Allergies, Adverse Reactions, Alerts Allergy Name Reaction Description Start Date Severity Statu s Provider No known active allergies No known active allergies Mild Trinidad Mahoney Results Date Name Value Unit Range Flag Description Lab Report: CBC W/O DIFF PLATELETK/UL 228 10*3/uL 140-375 platelet count MCHC RBC 32.8 g/dL 32-36 mean corpusc ular hemoglobin concentration, RBC RBC M/UL 3.91 10*6/uL 4.40-5.80 L red blood count WBC CT BLOOD 4.1 10*3/uL 3.6-10.5 leukocy te count, blood Lab Report: BASIC METABOLIC PNL CO2 PLSM/SER 30 meq/L 21-31 carbon d ioxide, serum or plasma CL SERUM 103 meq/L 98-111 Chloride [Moles/volume] in Serum or Plasma K SERUM 4.3 meq/L 3.6-5.1 Potassium [Moles/volume] in Serum or Plasma NA 138 meq/L 135-145 Sodium [Moles/volume] in Serum or Plasma Lab Report: CBC WITH DIFF EOS COUNT 0.1 10*3/mm3 0.0-0.5 eosinophil count, blood MONOCYTE CNT 0.4 10*3/mm3 0.3-0.9 monocyt e count, blood LYMPHOCYTCNT 1.3 10*3/MM3 1.2-3.9 lym phocyte count NEUTRO COUNT 2.6 10*3/mm3 1.6-6.1 neutrop hil count, blood BASOPHIL % 0.7 % Basophils/ 100 leukocytes in Blood by Manual count EOSINOPHIL % 2.7 % Eosinoph ils/100 leukocytes in Blood by Manual count MONOS % MANU 9.4 % monocyte s as percent of blood leukocytes, manual count LYMPHOCY BF 29.6 % lymphocyt es as percent of body fluid leukocytes GRANULOCPCT 0.2 % granulocy te percent, blood NEUTROP BF 57.4 % Neutrophil s/100 leukocytes in Body fluid MPV 9.3 fL 8.8-12.5 Platelet jerica n volume [Entitic volume] in Blood by Toño RDW 14.5 % <=14.9 Erythrocyte distribution width [Ratio] by Automated count MCH 27.2 pg 26.0-34.0 MCH [Entiti c mass] by Automated count MCV 85.7 fL 80.0-100.0 MCV [Entit ic volume] by Automated count HCT 40.3 % 40.0-51.0 Hematocrit [Volume Fraction] of Blood by Automated count HGB 12.8 g/dL 13.7-17.5 L Hemoglobin [Mass/volume] in Blood RBC 4.70 10^6/MICROLI TER 10*6/mm3 4.60-6.10 Erythrocytes [#/volume] in Blood by Automated count WBC COUNT 4.5 10*3/uL 3.7-10.3 leukocyte count, blood Lab Report: BASIC METABOLIC PANEL GFRC 95 mL/min/1.7 3m2 >=60 Glomerular Filtration Rate Calculation CREATININE 0.92 mg/dL 0.67-1.30 Creatini ne [Mass/volume] in Serum or Plasma BUN 13 mg/dL 8-23 Urea nitrogen [Mass/volume] in Serum or Plasma GLUCOSE SER 92 mg/dL 70-99 Glucose [Mass/volume] in Serum or Plasma CALCIUM 9.4 mg/dL 8.8-10.4 Calcium [Moles/volume] in Serum or Plasma ANIONGAP 11 mmol/L 7-16 anion gap, s benigno CO2 TOTAL 26 mmol/L 22-29 carbon diox rodger, serum, total CHLORIDE 101 mmol/L 98-107 Chloride [Moles/volume] in Serum or Plasma POTASSIUM 3.5 mmol/L 3.5-5.0 Potassium [Moles/volume] in Serum or Plasma SODIUM BLD 138 mmol/L 136-145 sodium, wh ole blood Plan of Care Type Date Detail Patient education ARTERIOVENOUS% 20MALFORMATION Procedures Code Procedure Name Date Entry Date [facility]-[id number] Flu Shot Previously Received [facility]-[id number] Medications Documented Vital Signs Date Name Value Unit Description BMI (Body Mass Index) 31.79 kg/m2 Bod y Mass Index (Ratio) Height 73 [in_us] height E&M Weight Measured 241 [lb_av] weight E& M Weight Measured 241 [lb_av] weight E& M BP Diastolic 82 mm[Hg] blood pressu re, diastolic BP Systolic 116 mm[Hg] blood pressur e, systolic Heart Rate 70 /min pulse rate Immunizations No information available. Advance Directives No information available.
== END 2025-07-01 23:59 | disposition home or self-care (01) ==
PROVIDERS: PCP Nurse Practitioner; Visit Provider Nurse Practitioner Family
DX: Z51.81 Encounter for therapeutic drug level monitoring (principal); Z79.891 Long term (current) use of opiate analgesic
CPT/HCPCS: 36415